=== PATIENT | female | born 1940 | race Caucasian/White ===

== ENCOUNTER 2017-02-04 14:35 | Emergency (ER) | payer MEDICARE, BC ==
[2017-02-04] MEDS ORDERED: Lidocaine 1% 30 ML SDV INJECT ONE (14:51)
[2017-02-04] MEDS ORDERED: Bacitracin Oint 1 GM U/D Packet TOP ONE (14:51)
[2017-02-04 14:56] VITALS: BP 159/81
--- NOTE | 2017-02-04 14:56 | EDM.PDOC ---
ED HPI GENERAL MEDICAL PROBLEM - General Chief Complaint: Head Injury Stated Complaint: FALL @ HOME. CHIN, LEFT HAND, JAW PAIN Time Seen by Provider: 02/04/17 14:51 Source of Information: Reports: Patient, RN, RN Notes Reviewed History Limitations: Reports: No Limitations - History of Present Illness INITIAL COMMENTS - FREE TEXT/NARRATIVE: Pt presents to ER with c/o a fall at home resulting in a laceration to the chin , pain and swelling in the right jaw, and a hematoma to the left dorsal hand. She states she did hit her head, but did not lose consciousness. She denies anticoagulant use. She states she was letting her dog out on the leash when she got her foot caught in the rope and fell off a step, onto the sidewalk. Patient c/o pain in the right jaw, states she cannot close her teeth completely on the right side. Onset: Today, Sudden Onset Date: 02/04/17 Onset Time: 14:00 Location: Reports: Head, Face Quality: Reports: Throbbing Severity: Mild Improves with: Reports: None Worsens with: Reports: None Associated Symptoms: Reports: No Other Symptoms - Related Data Allergies Allergy/AdvReac Type Severity Reaction Status Date / Time Penicillins Allergy Swelling Verified 12/18/15 13:20 Home Meds: Home Meds Acetaminophen [Tylenol Arthritis] 1,300 mg PO BID 09/02/15 [History] Enalapril [Vasotec] 2.5 mg PO DAILY 09/02/15 [History] FLUoxetine [PROzac] 20 mg PO DAILY 09/02/15 [History] Hydroxychloroquine Sulfate [Plaquenil] 200 mg PO BID 09/02/15 [History] Hydroxychloroquine [Plaquenil] 200 mg PO BID 09/02/15 [History] Omeprazole 20 mg PO DAILY 09/02/15 [History] Morphine Sulfate [Morphine Sulfate ER] 15 mg PO BID 09/30/15 [History] Past Medical History Cardiovascular History: Reports: Hypertension Gastrointestinal History: Reports: GERD, Other (See Below) Other Gastrointestinal History: Increased Transaminase Genitourinary History: Reports: Other (See Below) Other Genitourinary History: Chronic kidney disease Musculoskeletal History: Reports: Osteoarthritis, RA, Other (See Below) Other Musculoskeletal History: Pseudogout involving multiple joints Psychiatric History: Reports: Depression Immunologic History: Reports: Other (See Below) - Past Surgical History Neurological Surgical History: Reports: Spinal Fusion, Other (See Below) Social & Family History - Family History Family Medical History: Noncontributory - Tobacco Use Smoking Status *Q: Never Smoker Second Hand Smoke Exposure: No - Caffeine Use Caffeine Use: Reports: Coffee - Recreational Drug Use Recreational Drug Use: No - Living Situation & Occupation Living situation: Reports: , Alone Occupation: Retired ED ROS GENERAL - Review of Systems Review Of Systems: ROS reveals no pertinent complaints other than HPI. ED EXAM, HEAD INJURY - Physical Exam Exam: See Below Exam Limited By: No Limitations General Appearance: Alert, WD/WN, No Apparent Distress Head: Normocephalic, Facial Lacerations, Other (right jaw pain) Nexus Criteria: Painful Distraction Injuries. No: Posterior, Midline Cervical Tenderness, Evidence of Intoxication, Altered Level of Consciousness, Focal Neurological Deficit Eyes: Bilateral Eye: EOMI, Normal Inspection, PERRL (5) Ears: Normal External Exam, Normal Canal, Hearing Grossly Normal, Normal TMs Nose: Normal Inspection, Normal Mucousa, No Blood Throat/Mouth: Normal Inspection, Normal Lips, Normal Teeth, Normal Gums, Normal Oropharynx, Normal Voice, No Airway Compromise Neck: Non-Tender, Full Range of Motion, Normal Alignment, Normal Inspection Respiratory: No Respiratory Distress, Lungs Clear, Normal Breath Sounds, No Accessory Muscle Use, Chest Non-Tender Cardiovascular: Normal Peripheral Pulses, Regular Rate, Rhythm, No Edema, No Gallop, No JVD, No Murmur, No Rub GI/Abdominal Exam: Normal Bowel Sounds, Soft, Non-Tender, No Organomegaly, No Distention, No Abnormal Bruit, No Mass (Female) Exam: Deferred Rectal (Female) Exam: Deferred Back Exam: Normal Inspection, Full Range of Motion Extremities: Normal Inspection, Normal Range of Motion, Non-Tender, No Pedal Edema, Normal Capillary Refill, Other (large hematoma to the left dorsal hand, pain to left elbow, humerus) Neurologic: No Motor/Sensory Deficits, Alert, Normal Mood/Affect, Oriented x 3 Skin: Normal Color, Warm/Dry - [place] Coma Score Best Eye Response (James): (4) Open Spontaneously Best Verbal Response ([place]): (5) Oriented Best Motor Response (James): (6) Obeys Commands James Total: 15 ED LACERATION/WOUND & BIJAL PROC - Laceration/Wound Repair Middle Mid-Anterior Medial Distal Ventral Face Lac/wound length in cm: 2.8 (under chin) Appearance: Subcutaneous Distal NVT: Neuro & Vascular Intact Anesthetic Type: Local Local Anesthesia - Lidocaine (Xylocaine): 1% Plain Local Anesthetic Volume: 5cc Skin Prep: Chlorhexidine (Hibiciens) Exploration/Debridement/Repair: Wound Explored, In a Bloodless Field, Explored to Base, No Foreign Material Found Closed with: Sutures Suture Size: other (5.0) # of Sutures: 3 Suture Type: Nylon Course - Vital Signs Last Recorded V/S: Last Vital Signs Temp 97.2 F 02/04/17 14:46 Pulse 101 H 02/04/17 14:46 Resp 16 02/04/17 14:46 BP 159/81 H 02/04/17 14:46 Pulse Ox 97 02/04/17 14:46 - Orders/Labs/Meds Meds: Medications Discontinued Medications Generic Name Dose Route Start Last Admin Trade Name Freq PRN Reason Stop Dose Admin Bacitracin 1 dose 02/04/17 14:51 02/04/17 15:51 Bacitracin Oint 1 Gm TOP 02/04/17 14:52 1 dose ONETIME ONE Administration Lidocaine HCl 30 ml 02/04/17 14:51 02/04/17 15:51 Xylocaine-Mpf 1% INJECT 02/04/17 14:52 30 ml ONETIME ONE Administration - Radiology Interpretation Free Text/Narrative:: head CT w/o contrast: maxillofacial CT w/o contrast: See rad report CT Results Date: 02/04/17 - Re-Assessments/Exams Free Text/Narrative Re-Assessment/Exam: 02/04/17 16:45 Discussed patient case with Dr. Lea at . He states he would like the patient to have a full liquid diet until seen by him. He would like to see her Friday morning in the clinic. Departure - Departure Time of Disposition: 16:46 Disposition: Home, Self-Care 01 Condition: Fair Clinical Impression: Laceration, Hematoma Mandible fracture Qualifiers: Encounter type: initial encounter Fracture type: closed Mandible location: condylar process Laterality: right Qualified Code(s): S02.611A - Fracture of condylar process of right mandible, initial encounter for closed fracture Contusion of left elbow and forearm Qualifiers: Encounter type: initial encounter Qualified Code(s): S50.12XA - Contusion of left forearm, initial encounter - Discharge Information Instructions: Hematoma, [id number], Full Liquid Diet, Fractured-Jaw Meal Plan , Elbow Contusion, [id number], Laceration Care, Adult, [id number] Referrals: Opal Han [Primary Care Provider] - Forms: ED Department Discharge Additional Instructions: Tylenol or Motrin for pain as directed Full liquid diet until seen by Dr. Lea in [place] Call tomorrow morning to make an appointment with Dr. Lea at [facility] in [place]. He would like to see you Friday morning in [place] in the clinic. Follow up with your primary care provider to have sutures removed in 7 days
--- NOTE | 2017-02-04 15:59 | CR ---
Clinical history: 76-year-old female injured in fall. Interpretation: 3 views left humerus confirm apparent chronic rotator cuff damage with reactive arthritic changes of the left shoulder joint. No sign of long bone humeral fracture, acute glenohumeral or left elbow joint dislocation. No fractures of the left clavicle or ipsilateral bony thorax.
--- NOTE | 2017-02-04 16:02 | CT ---
Clinical history: 76-year-old 143 pound female pain after injury to right side of the head and jaw (f all). Scan technique: Volume acquisition of data emergency unenhanced CT scan of the head and brain obtaine d with patient lying supine on the Siemens multi slice CT scanner [place], [place]. All data archived in the PAC system for storage and study (bone/brain windows). Interpretation: Uniformly thick bony calvarium without sign of skull fracture, underlying brain contu umu, contrecoup brain injury, or extracerebral/intracranial epidural or subdural hematoma. Normal or bits. Symmetric clear pneumatization of the paranasal and mastoid sinuses (nasal septum is straight in the midline). Age-appropriate atrophy with underlying mirror-image normal ventricular system. Physiologic midline p ineal and scattered but symmetric callus cases of choroid plexus. No supratentorial or posterior fossa mass lesion, focal areas of ischemic infarct/cerebral edema, or signs of acute intracerebral/intraventricular/subarachnoid bleed. CONCLUSION: No sign of skull fracture or closed head trauma. Atrophy.
--- NOTE | 2017-02-04 16:07 | CT ---
Clinical history: 76-year-old female right face and jaw trauma (ground-level fall) who had a "negativ e" emergency unenhanced CT scan of the head and brain. Scan technique: Volume acquisition of data unenhanced CT scan of the face obtained with patient lying supine on the Siemens multi slice CT scanner [place], [place]. All da ta archived in the PACS system for storage, reformatting and study. Interpretation: Abnormal. Acute nondisplaced fracture neck of right mandible just beneath the ipsilateral TMJ. No sign of other mandibular fracture or temporomandibular joint dislocation (symmetric dental occlusi on). Symmetric normal appearing orbits and zygomatic arches. Nasal septum is straight in the midline. Paranasal sinuses symmetrically pneumatized and clear. No foreign bodies. CONCLUSION: Infracondylar fracture right mandible, near the TMJ. No sign of other facial bone fractur e or TMJ dislocation.
== END 2017-02-04 17:11 | disposition home or self-care (01) ==
LOC: DL.ED 14:35
DX: S02.611A Fracture of condylar process of right mandible, initial encounter for closed fracture (principal); S01.81XA Laceration without foreign body of other part of head, initial encounter; S50.12XA Contusion of left forearm, initial encounter; I10 Essential (primary) hypertension; Z79.899 Other long term (current) drug therapy; Z88.0 Allergy status to penicillin; W19.XXXA Unspecified fall, initial encounter; Y92.009 Unspecified place in unspecified non-institutional (private) residence as the place of occurrence of the external cause
CPT/HCPCS: 12013; 70450; 70486; 73060-LT; 99283; 99284

== ENCOUNTER 2021-04-05 11:37 | Inpatient (IN) | payer MEDICARE, BC ==
--- NOTE | 2021-04-05 12:25 | EDM.PDOC ---
ED HPI GENERAL MEDICAL PROBLEM - General Chief Complaint: Gastrointestinal Problem Stated Complaint: JUVENCIO REFERRED / INFEC & BLACK STOOL Time Seen by Provider: 04/05/21 12:25 Source of Information: Reports: Patient, Old Records, RN, RN Notes Reviewed History Limitations: Reports: No Limitations - History of Present Illness INITIAL COMMENTS - FREE TEXT/NARRATIVE: Pt presents to clinic sent by Dr. Guthrie due to pt reporting onset of black stools. Pt c/o unexplained weight loss of approx. 30lbs in the last 6 months or so. Pt developed diarrhea 2 months ago and it has been constant with several, often uncontrollable liquid BMs everyday. Pt states her appetite has been poor. Admits to nausea, worsening generalized weakness, and to several falls. Denies fever, chest pain, cough, chills, bloody stool, or dysuria. Dr. Gibson has access to [facility] with [facility] and was able to confirm the pt was treated for Campylobacter with zithromax, and is being treated for cryptosporidium with Nitazoxanide. - Related Data Allergies Allergy/AdvReac Type Severity Reaction Status Date / Time Penicillins Allergy Swelling Verified 12/18/15 13:20 Home Meds: Home Meds Acetaminophen [Tylenol Arthritis] 1,300 mg PO BID 09/02/15 [History] Enalapril [Vasotec] 2.5 mg PO DAILY 09/02/15 [History] FLUoxetine [PROzac] 20 mg PO DAILY 09/02/15 [History] Hydroxychloroquine Sulfate [Plaquenil] 200 mg PO BID 09/02/15 [History] Hydroxychloroquine [Plaquenil] 200 mg PO BID 09/02/15 [History] Omeprazole 20 mg PO DAILY 09/02/15 [History] Morphine Sulfate [Morphine Sulfate ER] 15 mg PO BID 09/30/15 [History] Leflunomide [Arava] 20 mg PO DAILY 04/05/21 [History] Nitazoxanide 500 mg PO BID 04/05/21 [History] Past Medical History HEENT History: Reports: Impaired Vision Cardiovascular History: Reports: Hypertension Gastrointestinal History: Reports: GERD, Other (See Below) Other Gastrointestinal History: Increased Transaminase Genitourinary History: Reports: Other (See Below) Other Genitourinary History: Chronic kidney disease Musculoskeletal History: Reports: Osteoarthritis, RA, Other (See Below) Other Musculoskeletal History: Pseudogout involving multiple joints Psychiatric History: Reports: Depression Immunologic History: Reports: Other (See Below) Other Immunologic History: RA Oncologic (Cancer) History: Reports: Basal Cell Carcinoma - Past Surgical History Neurological Surgical History: Reports: Spinal Fusion, Other (See Below) Social & Family History - Family History Family Medical History: No Pertinent Family History - Caffeine Use Caffeine Use: Reports: Coffee - Living Situation & Occupation Living situation: Reports: , Alone Occupation: Retired ED ROS GENERAL - Review of Systems Review Of Systems: Comprehensive ROS is negative, except as noted in HPI. ED EXAM, GI/ABD - Physical Exam Exam: See Below Exam Limited By: No Limitations General Appearance: Alert, No Apparent Distress, Thin, Other (Frail elderly appearing female) Eyes: Bilateral: Normal Appearance (No scleral icterus) Nose: Normal Inspection, No Blood Throat/Mouth: Normal Lips, Normal Voice, No Airway Compromise, Other (Very dry oral mucosa) Head: Atraumatic, Normocephalic Neck: Normal Inspection, Non-Tender, Full Range of Motion Respiratory/Chest: No Respiratory Distress, Lungs Clear, Normal Breath Sounds, No Accessory Muscle Use, Chest Non-Tender Cardiovascular: Normal Peripheral Pulses, Regular Rate, Rhythm, No Edema GI/Abdominal Exam: Normal Bowel Sounds, Soft, Tender (Mild generalzied tenderness). No: Guarding, Rigid, Rebound Rectal (Female) Exam: Normal Rectal Tone, Heme - Stool. No: Bloody Stool Back Exam: Normal Inspection Extremities: Normal Inspection, No Pedal Edema Neurological: Alert, Oriented, No Motor/Sensory Deficits, Other (Generalized weakness) Psychiatric: Normal Affect, Normal Mood Skin Exam: Warm, Dry, Other (Resolving large bruises to back and flank from recent fall(s)) Course - Vital Signs Last Recorded V/S: Last Vital Signs Temp 98.9 F 04/05/21 12:31 Pulse 68 04/05/21 12:31 Resp 16 04/05/21 12:31 BP 116/71 04/05/21 12:31 Pulse Ox 99 04/05/21 12:31 - Orders/Labs/Meds Orders: Active Orders 24 hr Category Date Time Status Peripheral IV Care [RC] . DIRECTED Care 04/05/21 12:41 Active CORONAVIRUS COVID-19 NICK [MOLEC] Stat Lab 04/05/21 14:51 Ordered CULTURE URINE [RM] Stat Lab 04/05/21 14:05 Received Sodium Chloride 0.9% [Saline Flush] Med 04/05/21 12:41 Active 10 ml FLUSH ASDIRECTED PRN Peripheral IV Insertion Adult [OM.PC] Stat Oth 04/05/21 12:41 Ordered Medication Orders Sodium Chloride (Sodium Chloride 0.9% 10 Ml Syringe) 10 ml FLUSH ASDIRECTED PRN PRN Reason: Keep Vein Open Last Admin: 04/05/21 12:53 Dose: 10 ml Documented by: IGNACIA Labs: Laboratory Tests 04/05/21 04/05/21 04/05/21 Range/Units 12:54 12:54 12:54 WBC 5.8 (5.0-10.0) 10^3/uL RBC 3.28 L (4.2-5.4) 10^6/uL Hgb 10.5 L (12.0-16.0) g/dL Hct 30.7 L (37.0-47.0) % MCV 93.6 D (80-100) fL MCH 32.0 (27.0-34.0) pg MCHC 34.2 (33.0-35.0) g/dL Plt Count 258 D (150-450) 10^3/uL Neut % (Auto) 72.9 (42.2-75.2) % Lymph % (Auto) 9.0 L (20.5-50.1) % [place] % (Auto) 15.9 H (2-8) % Eos % (Auto) 1.9 (1.0-3.0) % Baso % (Auto) 0.3 (0.0-1.0) % Sodium 137 (136-145) mmol/L Potassium 2.4 L* (3.5-5.1) mmol/L Chloride 100 (98-107) mmol/L Carbon Dioxide 22 (21-32) mmol/L Anion Gap 17.4 H (7-13) mEq/L BUN 22 H (7-18) mg/dL Creatinine 1.60 H (0.55-1.02) mg/dL Est Cr Clr Drug Dosing 21.78 mL/min Estimated GFR (MDRD) 31 BUN/Creatinine Ratio 13.8 (No establ ref range) Glucose 109 H (70-99) mg/dL Lactic Acid 1.0 (0.4-2.0) mmol/L Calcium 8.3 L (8.5-10.1) mg/dL Phosphorus 2.5 L (2.6-4.7) mg/dL Magnesium 1.6 L (1.8-2.4) mg/dL Total Bilirubin 0.4 (0.2-1.0) mg/dL AST 34 (15-37) U/L ALT 26 (14-59) U/L Alkaline Phosphatase 51 (46-116) U/L Lactate Dehydrogenase 223 (81-234) U/L Creatine Kinase 221 H (16-191) U/L C-Reactive Protein 0.4 (0.0-0.9) mg/dL Total Protein 6.1 L (6.4-8.2) g/dL Albumin 2.9 L (3.4-5.0) g/dL Globulin 3.2 Albumin/Globulin Ratio 0.91 Amylase 29 (25-115) U/L Lipase 108 (73-393) U/L TSH, Ultra Sensitive 0.88 (0.36-3.74) uIU/mL Urine Color (YELLOW) Urine Appearance (CLEAR) Urine pH (5.0-9.0) Ur Specific [place] (1.005-1.030) Urine Protein (NEGATIVE) Urine Glucose (UA) (NEGATIVE) Urine Ketones (NEGATIVE) Urine Occult Blood (NEGATIVE) Urine Nitrite (NEGATIVE) Urine Bilirubin (NEGATIVE) Urine Urobilinogen (0.2-1.0) mg/dL Ur Leukocyte Esterase (NEGATIVE) Urine RBC (0-5) /HPF Urine WBC (0-5/HPF) /HPF Ur Epithelial Cells (NOT SEEN) /HPF Amorphous Sediment (NOT SEEN) /HPF Urine Bacteria (0-FEW/HPF) /HPF Urine Mucus (NOT SEEN) /LPF 04/05/21 Range/Units 14:05 WBC (5.0-10.0) 10^3/uL RBC (4.2-5.4) 10^6/uL Hgb (12.0-16.0) g/dL Hct (37.0-47.0) % MCV (80-100) fL MCH (27.0-34.0) pg MCHC (33.0-35.0) g/dL Plt Count (150-450) 10^3/uL Neut % (Auto) (42.2-75.2) % Lymph % (Auto) (20.5-50.1) % [place] % (Auto) (2-8) % Eos % (Auto) (1.0-3.0) % Baso % (Auto) (0.0-1.0) % Sodium (136-145) mmol/L Potassium (3.5-5.1) mmol/L Chloride (98-107) mmol/L Carbon Dioxide (21-32) mmol/L Anion Gap (7-13) mEq/L BUN (7-18) mg/dL Creatinine (0.55-1.02) mg/dL Est Cr Clr Drug Dosing mL/min Estimated GFR (MDRD) BUN/Creatinine Ratio (No establ ref range) Glucose (70-99) mg/dL Lactic Acid (0.4-2.0) mmol/L Calcium (8.5-10.1) mg/dL Phosphorus (2.6-4.7) mg/dL Magnesium (1.8-2.4) mg/dL Total Bilirubin (0.2-1.0) mg/dL AST (15-37) U/L ALT (14-59) U/L Alkaline Phosphatase (46-116) U/L Lactate Dehydrogenase (81-234) U/L Creatine Kinase (16-191) U/L C-Reactive Protein (0.0-0.9) mg/dL Total Protein (6.4-8.2) g/dL Albumin (3.4-5.0) g/dL Globulin Albumin/Globulin Ratio Amylase (25-115) U/L Lipase (73-393) U/L TSH, Ultra Sensitive (0.36-3.74) uIU/mL Urine Color Yellow (YELLOW) Urine Appearance Slightly cloudy (CLEAR) Urine pH 6.0 (5.0-9.0) Ur Specific [place] 1.015 (1.005-1.030) Urine Protein Trace H (NEGATIVE) Urine Glucose (UA) Negative (NEGATIVE) Urine Ketones Negative (NEGATIVE) Urine Occult Blood Trace-intact H (NEGATIVE) Urine Nitrite Negative (NEGATIVE) Urine Bilirubin Negative (NEGATIVE) Urine Urobilinogen 0.2 (0.2-1.0) mg/dL Ur Leukocyte Esterase Large H (NEGATIVE) Urine RBC 0-5 (0-5) /HPF Urine WBC Packed H (0-5/HPF) /HPF Ur Epithelial Cells Rare (NOT SEEN) /HPF Amorphous Sediment Few (NOT SEEN) /HPF Urine Bacteria Moderate H (0-FEW/HPF) /HPF Urine Mucus Few H (NOT SEEN) /LPF Meds: Medications Generic Name Dose Route Start Last Admin Trade Name Freq PRN Reason Stop Dose Admin Sodium Chloride 10 ml 04/05/21 12:41 04/05/21 12:53 Sodium Chloride 0.9% 10 Ml Syringe FLUSH 10 ml ASDIRECTED PRN Administration Keep Vein Open Discontinued Medications Generic Name Dose Route Start Last Admin Trade Name Freq PRN Reason Stop Dose Admin Sodium Chloride 1,000 mls @ 999 mls/hr 04/05/21 12:43 04/05/21 12:53 Normal Saline IV 04/05/21 13:43 999 mls/hr .BOLUS ONE Administration Ondansetron HCl 4 mg 04/05/21 12:43 04/05/21 12:53 Ondansetron 4 Mg/2 Ml Sdv IV 04/05/21 12:44 4 mg ONETIME ONE Administration Departure - Departure Time of Disposition: 14:22 (admitted to Dr. Gibson) Disposition: Admitted As Inpatient 66 Condition: Fair Clinical Impression: Diarrhea due to cryptosporidium, Campylobacter enteritis, Dehydration, Hypokalemia, Hypomagnesemia, Generalized weakness, Unexplained weight loss, Recurrent falls - Discharge Information *PRESCRIPTION DRUG MONITORING PROGRAM REVIEWED*: Not Applicable *COPY OF PRESCRIPTION DRUG MONITORING REPORT IN PATIENT [place]: Not Applicable Forms: ED Department Discharge Sepsis Event Note (ED) - Focused Exam Vital Signs: Vital Signs Temp Pulse Resp BP Pulse Ox 04/05/21 12:31 98.9 F 68 16 116/71 99 - My Orders Last 24 Hours: My Active Orders 04/05/21 12:41 Peripheral IV Care [RC] . DIRECTED Sodium Chloride 0.9% [Saline Flush] 10 ml FLUSH ASDIRECTED PRN Peripheral IV Insertion Adult [OM.PC] Stat 04/05/21 14:05 CULTURE URINE [RM] Stat 04/05/21 14:51 CORONAVIRUS COVID-19 NICK [MOLEC] Stat - Assessment/Plan Last 24 Hours: My Active Orders 04/05/21 12:41 Peripheral IV Care [RC] . DIRECTED Sodium Chloride 0.9% [Saline Flush] 10 ml FLUSH ASDIRECTED PRN Peripheral IV Insertion Adult [OM.PC] Stat 04/05/21 14:05 CULTURE URINE [RM] Stat 04/05/21 14:51 CORONAVIRUS COVID-19 NICK [MOLEC] Stat
[2021-04-05] MEDS ORDERED: Sodium Chloride 0.9% 10 ML Syringe FLUSH PRN (12:41)
[2021-04-05] MEDS ORDERED: Ondansetron 4 MG/2 ML SDV IV ONE (12:43)
[2021-04-05] MEDS ORDERED: Sodium Chloride 0.9% 1,000 ML IV ONE (12:43)
[2021-04-05 13:30] LABS: ANION GAP 17.4 mEq/L (7-13)
[2021-04-05] MEDS ORDERED: NS + KCl 20mEq/L 1,000 ML IV SCH (16:30)
[2021-04-05] MEDS ORDERED: Temazepam 15 MG Cap PO PRN (16:52)
[2021-04-05] MEDS ORDERED: Acetaminophen/HYDROcodone 325-10 MG Tab PO PRN (16:52)
[2021-04-05] MEDS ORDERED: Ondansetron 4 MG Tab.DIS PO PRN (16:52)
[2021-04-05] MEDS ORDERED: Ondansetron 4 MG/2 ML SDV IVPUSH PRN (16:52)
[2021-04-05] MEDS ORDERED: Acetaminophen 325 MG Tab PO PRN ×2 (16:52→19:51)
--- NOTE | 2021-04-05 17:29 | PCM.HP ---
H&P History of Present Illness - General Date of Service: 04/05/21 Admit Problem/Dx: Admission Diagnosis/Problem Admission Diagnosis/Problem Hypokalemia Source of Information: Patient - History of Present Illness Initial Comments - Free Text/Narative: Information is from ER provider, patient I have also reviewed outside medical records from [facility] clinic notes In summary Mrs Hair is an 81 yo F with h/o anxiety, RA, ged, dyslipidemia, She has developed a diarrhea that has been on/off present since 12/2020. She had no ABx exposure prior to development of the diarrhea. She was seen by her PMD and referred to GI program consultant dr. Soriano Prior stool studies noted cryptosporidium Ag and campylobacter from stool. C diff was negative, She was treated with 3 days of Azithromycin and nitazoxanide The diarrhea is watery, no blood in stool no associated cramps, no fever she does report black stool color, diarrhea present during the day as well as during the night in the past days she has been getting progressively weaker, has 20-30 pounds wght loss fell 2 days ago - she thinks it was due to a rug on the floor, hit her back , hematoma developed, no loc yesterday had 1 loose BM, \last night had 3 watery black BM per chart review: from [facility] SOCIAL HISTORY: Does not smoke cigarettes, does not drink alcohol, does not take large amounts of aspirin-related medications regularly. Does not take pop, has some milk intolerance. FAMILY HISTORY: Negative for IBD, colon polyp, or colon cancer. No peptic ulcer disease or liver disease. PAST ILLNESS: 1. Generalized anxiety disorder. 2. Depressive illness. 3. Hyperlipidemia. 4. Status post skin basal cell cancer. 5. Hyperglycemia. 6. GERD. 7. Status post gram-negative sepsis. 8. Status post UTI. 9. Hypertension. 10. Status post jaw fracture. 11. Status post spine fracture requiring surgery. 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 13. Status post lymph node biopsy, benign. 14. Status post hip arthroplasty. 15. ALLERGY AND/OR INTOLERANCE TO PENICILLIN, LISINOPRIL. 16. RA Medications Marked As Taking Medication Sig FLUoxetine (PROZAC) 20 MG capsule TAKE 1 CAPSULE BY MOUTH DAILY losartan (COZAAR) 50 MG tablet TAKE 1/2 TABLET BY MOUTH DAILY omeprazole (PRILOSEC) 20 MG capsule TAKE 1 CAPSULE BY MOUTH DAILY leflunomide (ARAVA) 20 MG tablet TAKE 1 TABLET BY MOUTH EVERY MORNING Calcium Carb-Cholecalciferol (CALCIUM-VITAMIN D) 500-200 MG-UNIT per tablet Take 1 Tab by mouth daily. w Acetaminophen 650 MG TABS Take 1,300 mg by mouth 2 times daily. Indications: CPPD pain Multiple Vitamins-Minerals (MULTIVITAMIN & MINERAL PO) Take 1 Tab by mouth daily. Indications: supplementation - Related Data Allergies/Adverse Reactions: Allergies Allergy/AdvReac Type Severity Reaction Status Date / Time Penicillins Allergy Swelling Verified 12/18/15 13:20 Home Medications: Home Meds Acetaminophen [Tylenol Arthritis] 1,300 mg PO BID 09/02/15 [History] Enalapril [Vasotec] 2.5 mg PO DAILY 09/02/15 [History] FLUoxetine [PROzac] 20 mg PO DAILY 09/02/15 [History] Omeprazole 20 mg PO DAILY 09/02/15 [History] Leflunomide [Arava] 20 mg PO DAILY 04/05/21 [History] Losartan [Cozaar] 50 mg PO DAILY 04/05/21 [History] Multivit,Calc,Mins/Iron/Folic [Women's Daily Formula Caplet] 1 each PO DAILY 04/05/21 [History] Nitazoxanide 500 mg PO BID 04/05/21 [History] Past Medical History HEENT History: Reports: Hard of Hearing, Impaired Vision Other HEENT History: wears glasses. Bilateral KMI Cardiovascular History: Reports: Hypertension Respiratory History: Reports: None Gastrointestinal History: Reports: GERD, Other (See Below) Other Gastrointestinal History: Increased Transaminase Genitourinary History: Reports: Other (See Below) Other Genitourinary History: Chronic kidney disease Musculoskeletal History: Reports: Osteoarthritis, RA, Other (See Below) Other Musculoskeletal History: Pseudogout involving multiple joints. Total hip replacement of right leg Neurological History: Reports: None Psychiatric History: Reports: Depression, Other (See Below) Other Psychiatric History: Depression in past following her daughter and husbands within less than a year. States no depression now Endocrine/Metabolic History: Reports: Hypokalemia Hematologic History: Reports: None Immunologic History: Reports: Other (See Below) Other Immunologic History: RA Oncologic (Cancer) History: Reports: Basal Cell Carcinoma Dermatologic History: Reports: Other (See Below) Other Dermatologic History: basal cell carcinoma - Infectious Disease History Infectious Disease History: Reports: C-Difficile, Chicken Pox, Measles, Mumps, Shingles - Past Surgical History Head Surgeries/Procedures: Reports: None GI Surgical History: Reports: Colonoscopy Neurological Surgical History: Reports: Spinal Fusion, Other (See Below) Other Neurological Surgeries/Procedures: T10-L2 fusion (09/03/15) following T12 burst fracture and L1 & L3 transverse process fxs on 09/02/15 Social & Family History - Family History Family Medical History: No Pertinent Family History - Tobacco Use Tobacco Use Status *Q: Never Tobacco User - Caffeine Use Caffeine Use: Reports: Coffee - Recreational Drug Use Recreational Drug Use: No - Living Situation & Occupation Living situation: Reports: , Alone Occupation: Retired H&P Review of Systems - Review of Systems: Review Of Systems: See Below General: Reports: Malaise. Denies: Fever, Chills Pulmonary: Denies: Shortness of Breath Cardiovascular: Denies: Chest Pain, Edema Gastrointestinal: Reports: Anorexia, Black Stool, Nausea (yesterday). Denies: Abdominal Pain, Bloody Stool Musculoskeletal: Reports: Other (back pain - since fall, joint pain - chronic) Psychiatric: Denies: Confusion Exam - Exam Exam: See Below - Vital Signs Vital Signs: Last Vital Signs Temp 98.9 F 04/05/21 12:31 Pulse 68 04/05/21 12:31 Resp 16 04/05/21 12:31 BP 116/71 04/05/21 12:31 Pulse Ox 99 04/05/21 12:31 Weight: 112 lb - Exam Quality Assessment: No: Supplemental Oxygen General: Alert, Oriented Neck: Supple Lungs: Clear to Auscultation, Normal Respiratory Effort Cardiovascular: Regular Rate, Regular Rhythm GI/Abdominal Exam: Normal Bowel Sounds, Soft, Non-Tender Back Exam: Other (bruise) Extremities: No Pedal Edema Skin: Warm, Dry Neuro Extensive - Mental Status: Alert, Oriented x3, Normal Mood/Affect Psychiatric: Alert, Normal Affect, Normal Mood - Patient Data Lab Results Last 24 hrs: Laboratory Results - last 24 hr 04/05/21 04/05/21 04/05/21 Range/Units 12:54 12:54 12:54 WBC 5.8 (5.0-10.0) 10^3/uL RBC 3.28 L (4.2-5.4) 10^6/uL Hgb 10.5 L (12.0-16.0) g/dL Hct 30.7 L (37.0-47.0) % MCV 93.6 D (80-100) fL MCH 32.0 (27.0-34.0) pg MCHC 34.2 (33.0-35.0) g/dL Plt Count 258 D (150-450) 10^3/uL Neut % (Auto) 72.9 (42.2-75.2) % Lymph % (Auto) 9.0 L (20.5-50.1) % [place] % (Auto) 15.9 H (2-8) % Eos % (Auto) 1.9 (1.0-3.0) % Baso % (Auto) 0.3 (0.0-1.0) % Sodium 137 (136-145) mmol/L Potassium 2.4 L* (3.5-5.1) mmol/L Chloride 100 (98-107) mmol/L Carbon Dioxide 22 (21-32) mmol/L Anion Gap 17.4 H (7-13) mEq/L BUN 22 H (7-18) mg/dL Creatinine 1.60 H (0.55-1.02) mg/dL Est Cr Clr Drug Dosing 21.78 mL/min Estimated GFR (MDRD) 31 BUN/Creatinine Ratio 13.8 (No establ ref range) Glucose 109 H (70-99) mg/dL Lactic Acid 1.0 (0.4-2.0) mmol/L Calcium 8.3 L (8.5-10.1) mg/dL Phosphorus 2.5 L (2.6-4.7) mg/dL Magnesium 1.6 L (1.8-2.4) mg/dL Total Bilirubin 0.4 (0.2-1.0) mg/dL AST 34 (15-37) U/L ALT 26 (14-59) U/L Alkaline Phosphatase 51 (46-116) U/L Lactate Dehydrogenase 223 (81-234) U/L Creatine Kinase 221 H (16-191) U/L C-Reactive Protein 0.4 (0.0-0.9) mg/dL Total Protein 6.1 L (6.4-8.2) g/dL Albumin 2.9 L (3.4-5.0) g/dL Globulin 3.2 Albumin/Globulin Ratio 0.91 Amylase 29 (25-115) U/L Lipase 108 (73-393) U/L TSH, Ultra Sensitive 0.88 (0.36-3.74) uIU/mL Urine Color (YELLOW) Urine Appearance (CLEAR) Urine pH (5.0-9.0) Ur Specific [place] (1.005-1.030) Urine Protein (NEGATIVE) Urine Glucose (UA) (NEGATIVE) Urine Ketones (NEGATIVE) Urine Occult Blood (NEGATIVE) Urine Nitrite (NEGATIVE) Urine Bilirubin (NEGATIVE) Urine Urobilinogen (0.2-1.0) mg/dL Ur Leukocyte Esterase (NEGATIVE) Urine RBC (0-5) /HPF Urine WBC (0-5/HPF) /HPF Ur Epithelial Cells (NOT SEEN) /HPF Amorphous Sediment (NOT SEEN) /HPF Urine Bacteria (0-FEW/HPF) /HPF Urine Mucus (NOT SEEN) /LPF SARS-CoV-2 RNA (NICK) (NEGATIVE) 04/05/21 04/05/21 Range/Units 14:05 14:32 WBC (5.0-10.0) 10^3/uL RBC (4.2-5.4) 10^6/uL Hgb (12.0-16.0) g/dL Hct (37.0-47.0) % MCV (80-100) fL MCH (27.0-34.0) pg MCHC (33.0-35.0) g/dL Plt Count (150-450) 10^3/uL Neut % (Auto) (42.2-75.2) % Lymph % (Auto) (20.5-50.1) % [place] % (Auto) (2-8) % Eos % (Auto) (1.0-3.0) % Baso % (Auto) (0.0-1.0) % Sodium (136-145) mmol/L Potassium (3.5-5.1) mmol/L Chloride (98-107) mmol/L Carbon Dioxide (21-32) mmol/L Anion Gap (7-13) mEq/L BUN (7-18) mg/dL Creatinine (0.55-1.02) mg/dL Est Cr Clr Drug Dosing mL/min Estimated GFR (MDRD) BUN/Creatinine Ratio (No establ ref range) Glucose (70-99) mg/dL Lactic Acid (0.4-2.0) mmol/L Calcium (8.5-10.1) mg/dL Phosphorus (2.6-4.7) mg/dL Magnesium (1.8-2.4) mg/dL Total Bilirubin (0.2-1.0) mg/dL AST (15-37) U/L ALT (14-59) U/L Alkaline Phosphatase (46-116) U/L Lactate Dehydrogenase (81-234) U/L Creatine Kinase (16-191) U/L C-Reactive Protein (0.0-0.9) mg/dL Total Protein (6.4-8.2) g/dL Albumin (3.4-5.0) g/dL Globulin Albumin/Globulin Ratio Amylase (25-115) U/L Lipase (73-393) U/L TSH, Ultra Sensitive (0.36-3.74) uIU/mL Urine Color Yellow (YELLOW) Urine Appearance Slightly cloudy (CLEAR) Urine pH 6.0 (5.0-9.0) Ur Specific [place] 1.015 (1.005-1.030) Urine Protein Trace H (NEGATIVE) Urine Glucose (UA) Negative (NEGATIVE) Urine Ketones Negative (NEGATIVE) Urine Occult Blood Trace-intact H (NEGATIVE) Urine Nitrite Negative (NEGATIVE) Urine Bilirubin Negative (NEGATIVE) Urine Urobilinogen 0.2 (0.2-1.0) mg/dL Ur Leukocyte Esterase Large H (NEGATIVE) Urine RBC 0-5 (0-5) /HPF Urine WBC Packed H (0-5/HPF) /HPF Ur Epithelial Cells Rare (NOT SEEN) /HPF Amorphous Sediment Few (NOT SEEN) /HPF Urine Bacteria Moderate H (0-FEW/HPF) /HPF Urine Mucus Few H (NOT SEEN) /LPF SARS-CoV-2 RNA (NICK) Negative (NEGATIVE) Result Diagrams: 04/05/21 12:54 04/05/21 12:54 [place] Results Last 24 hrs: Microbiology 04/05/21 12:34 Stool Occult Blood ([place]) - Final Stool / Feces NEGATIVE OCCULT BLOOD REFERENCE RANGE: NEGATIVE - Problem List (1) Dehydration SNOMED Code(s): 97760222 ICD Code: E86.0 - DEHYDRATION Status: Acute Current Visit: No (2) Diarrhea due to cryptosporidium SNOMED Code(s): 99318858, 950101328 ICD Code: A07.2 - CRYPTOSPORIDIOSIS Status: Acute Current Visit: No (3) Generalized weakness SNOMED Code(s): 00976505 ICD Code: R53.1 - WEAKNESS Status: Acute Current Visit: No (4) Hematoma SNOMED Code(s): 556020255 ICD Code: T14.8XXA - OTHER INJURY OF UNSPECIFIED BODY REGION, INITIAL ENCOUNTER Status: Acute Current Visit: No (5) Hypokalemia SNOMED Code(s): 46920489 ICD Code: E87.6 - HYPOKALEMIA Status: Acute Current Visit: No (6) Hypomagnesemia SNOMED Code(s): 854344220 ICD Code: E83.42 - HYPOMAGNESEMIA Status: Acute Current Visit: No (7) UTI, Urinary tract infectious disease SNOMED Code(s): 93668985 ICD Code: N39.0 - URINARY TRACT INFECTION, SITE NOT SPECIFIED Status: Acute Current Visit: No (8) Unexplained weight loss SNOMED Code(s): 662150345 ICD Code: R63.4 - ABNORMAL WEIGHT LOSS Status: Acute Current Visit: No Problem List Initiated/Reviewed/Updated: Yes Orders Last 24hrs: Active Orders 24 hr Category Date Time Status Admission Diagnosis [ADT] Stat ADT 04/05/21 15:27 Ordered Admission Status [Patient Status] [ADT] Routine ADT 04/05/21 15:27 Active Oxygen Therapy [RC] PRN Care 04/05/21 16:52 Active Peripheral IV Care [RC] Q4HR Care 04/05/21 12:41 Active Up With Assistance [RC] ASDIRECTED Care 04/05/21 16:52 Active VTE/DVT Education [RC] PER UNIT ROUTINE Care 04/05/21 16:52 Active Vital Signs [RC] Q4H Care 04/05/21 16:52 Active OT Evaluation and Treatment [CONS] Routine Cons 04/05/21 16:30 Active PT Evaluation and Treatment [CONS] Routine Cons 04/05/21 16:30 Active [place] Diet [DIET] Diet 04/05/21 Dinner Active BASIC METABOLIC PANEL,BMP [CHEM] AM Lab 04/06/21 05:15 Ordered CBC WITH AUTO DIFF [HEME] AM Lab 04/06/21 05:15 Ordered CLOSTRIDIUM DIFFICILE TOX RFLX [MREF] Routine Lab 04/05/21 16:26 Ordered CULTURE URINE [RM] Stat Lab 04/05/21 14:05 Received MAGNESIUM [CHEM] AM Lab 04/06/21 05:11 Ordered PHOSPHORUS [CHEM] AM Lab 04/06/21 05:11 Ordered Acetaminophen [TylenoL] Med 04/05/21 16:52 Active 650 mg PO Q4H PRN Acetaminophen/HYDROcodone [[place] 325-10 MG] Med 04/05/21 16:52 Active 0.5 tab PO Q4H PRN Ciprofloxacin [Ciprofloxacin HCl] Med 04/05/21 21:00 Active 250 mg PO BID FLUoxetine [PROzac] Med 04/06/21 09:00 Active 20 mg PO DAILY Famotidine [Pepcid] Med 04/05/21 21:00 Active 20 mg PO BID Heparin Sodium Med 04/05/21 22:00 Active 5,000 units SUBCUT Q8HR Magnesium Oxide Med 04/05/21 21:00 Active 500 mg PO BID Multivitamins w-Iron/Ca/FA/Min [Thera M Plus] Med 04/06/21 09:00 Active 1 tab PO DAILY NS + KCl 20mEq/L [Normal Saline with 20 mEq KCl] 1,000 Med 04/05/21 16:30 Active ml IV ASDIRECTED Omeprazole Med 04/06/21 06:00 Active 20 mg PO ACBREAKFAST Ondansetron [Zofran ODT] Med 04/05/21 16:52 Active 4 mg PO Q4H PRN Ondansetron [Zofran] Med 04/05/21 16:52 Active 4 mg IVPUSH Q4H PRN Phosphorus #1 [Neutra-Phos] Med 04/05/21 17:00 Active 250 mg PO QID Potassium Chloride [KCl in Water 10 MEQ/100 ML] 10 meq Med 04/05/21 16:30 Active Premix Bag 1 bag IV Q2H Sodium Chloride 0.9% [Saline Flush] Med 04/05/21 12:41 Active 10 ml FLUSH ASDIRECTED PRN Temazepam [Restoril] Med 04/05/21 16:52 Active 15 mg PO BEDTIME PRN Isolation [COMM] Stat Oth 04/05/21 16:27 Active Peripheral IV Insertion Adult [OM.PC] Stat Oth 04/05/21 12:41 Ordered Resuscitation Status Routine Resus Stat 04/05/21 16:52 Ordered Medication Orders Acetaminophen (Acetaminophen 325 Mg Tab) 650 mg PO Q4H PRN PRN Reason: Pain (Mild 1-3)/fever Hydrocodone Bitart/Acetaminophen (Acetaminophen/Hydrocodone 325-10 Mg Tab) 0.5 tab PO Q4H PRN PRN Reason: Pain (moderate 4-6) Ciprofloxacin (Ciprofloxacin 500 Mg Tab) 250 mg PO BID [facility] Famotidine (Famotidine 20 Mg Tab) 20 mg PO BID [facility] Fluoxetine HCl (Fluoxetine 10 Mg Cap) 20 mg PO DAILY [facility] Heparin Sodium (Porcine) (Heparin Sodium 5,000 Units/Ml Vial) 5,000 units SUBCUT Q8HR [facility] Potassium Chloride 10 meq/ (Premix) 100 mls @ 50 mls/hr IV Q2H [facility] Stop: 04/06/21 04:29 Potassium Chloride/Sodium Chloride (Normal Saline With 20 Meq Kcl) 1,000 mls @ 50 mls/hr IV ASDIRECTED [facility] Magnesium Oxide (Magnesium Oxide 250 Mg Tab) 500 mg PO BID [facility] Stop: 04/06/21 09:01 Multivitamins/Minerals (Multivitamins With Iron/Calcium/Folic Acid/Minerals Tab) 1 tab PO DAILY [facility] Omeprazole (Omeprazole 20 Mg Cap.Cr) 20 mg PO ACBREAKFAST [facility] Ondansetron HCl (Ondansetron 4 Mg Tab.Dis) 4 mg PO Q4H PRN PRN Reason: nausea, able to take PO Ondansetron HCl (Ondansetron 4 Mg/2 Ml Sdv) 4 mg IVPUSH Q4H PRN PRN Reason: Nausea/Vomiting Sodium Chloride (Sodium Chloride 0.9% 10 Ml Syringe) 10 ml FLUSH ASDIRECTED PRN PRN Reason: Keep Vein Open Last Admin: 04/05/21 12:53 Dose: 10 ml Documented by: IGNACIA Sodium Phosphate (Phosphorus #1 250 Mg Tab) 250 mg PO QID [facility] Stop: 04/06/21 13:01 Temazepam (Temazepam 15 Mg Cap) 15 mg PO BEDTIME PRN PRN Reason: Sleep Assessment/Plan Comment:: A/P: Diarrhea Previously dx as infectious with Chlamydia and cryptosporidia Previously treated with azithromycin and nitazoxanide Also has h/o milk intolerance Will start BRAT diet, lactose free diet Will repeat c diff Add Imodium as needed if cdiff is negative black stool will monitor for gi bleed, acute blood loss anemia for now increase PPI to BID omeprazole Stop omeprazole substitute with pepcid if no apparent gi bleed omeprazole can cause diarrhea as well Severe hypokalemia, hypomagnesemia, hypophosphatemia Will replace with IV KCL, PO Magnesium Recheck in 12 hours and continue supplement as needed SUKHI, dehydration Admission cr. 1.6 Will hydrate well Recheck renal fx in AM Multiple falls Likely due to dehydration Consult pt Possible UTI Check Urine cx Start Cipro HTN Hold cozaar re: sukhi Will follow vitals Mood disorder treat with Prozac h/o RA on arava concern for cryptococcus infection with immunosuppression and diarrhea side effect encouraged pt to fup with or assistant if diarrhea/crypto/chlamydia infection might be related to this medication and substitution would be needed she is reluctant to stop this medication as it has been working well for her RA dvt prophylaxis with sq heparin
[2021-04-05] MEDS: Potassium Chloride 10 MEQ in Premix Bag 1 BAG IV SCH ×2 (18:29→20:41)
[2021-04-05] MEDS: Phosphorus #1 250 MG Tab PO SCH ×2 (18:30→20:40)
[2021-04-05] MEDS: Omeprazole 20 MG Cap.CR PO SCH (20:40)
[2021-04-05] MEDS: Ciprofloxacin 500 MG Tab PO SCH (20:42)
[2021-04-05] MEDS ORDERED: Famotidine 20 MG Tab PO SCH (21:00)
[2021-04-05] MEDS ORDERED: Potassium Chloride 100 ML ONE (21:55)
[2021-04-05] MEDS: Heparin Sodium 5,000 Units/ML Vial SUBCUT SCH (22:40)
[2021-04-06] MEDS: Potassium Chloride 10 MEQ in Premix Bag 1 BAG IV SCH ×4 (00:50→07:33)
[2021-04-06] MEDS ORDERED: Omeprazole 20 MG Cap.CR PO SCH (06:00)
[2021-04-06 06:48] LABS: ANION GAP 18.2 mEq/L (7-13)
[2021-04-06] MEDS: Heparin Sodium 5,000 Units/ML Vial SUBCUT SCH ×3 (07:32→22:08)
[2021-04-06] MEDS: Acetaminophen 500 MG Tab PO PRN ×2 (08:29→20:17)
[2021-04-06] MEDS: FLUoxetine 10 MG Cap PO SCH (08:31)
[2021-04-06] MEDS: Phosphorus #1 250 MG Tab PO SCH ×2 (08:31→14:27)
[2021-04-06] MEDS: Omeprazole 20 MG Cap.CR PO SCH ×2 (08:31→20:23)
[2021-04-06] MEDS: Multivitamins with Iron/Calcium/Folic Acid/Minerals Tab PO SCH (08:32)
[2021-04-06] MEDS: Ciprofloxacin 500 MG Tab PO SCH ×2 (08:32→20:23)
[2021-04-06] MEDS ORDERED: LEFLUNOMIDE 20 MG PO SCH (09:00)
--- NOTE | 2021-04-06 12:17 | PCM.PN ---
- General Info Date of Service: 04/06/21 Admission Dx/Problem (Free Text): Admission Diagnosis/Problem Admission Diagnosis/Problem Hypokalemia Subjective Update: continued to have moderate diarrhea soft, brown x 3 since admission no associated abd pain, no fever duration is months no apparent exacerbating factors - Review of Systems General: Denies: Fever Pulmonary: Denies: Shortness of Breath Cardiovascular: Denies: Chest Pain, Edema Gastrointestinal: Reports: Diarrhea. Denies: Abdominal Pain, Nausea, Vomiting Genitourinary: Denies: Dysuria Neurological: Denies: Confusion - Patient Data Vitals - Most Recent: Last Vital Signs Temp 99.3 F 04/06/21 04:00 Pulse 82 04/06/21 04:00 Resp 18 04/06/21 04:00 BP 102/66 04/06/21 04:00 Pulse Ox 92 L 04/06/21 04:00 Weight - Most Recent: 112 lb I&O - Last 24 Hours: Intake & Output 04/05/21 04/06/21 04/06/21 22:59 06:59 14:59 Intake Total 400 120 Balance 400 120 Lab Results Last 24 Hours: Laboratory Results - last 24 hr 04/05/21 04/05/21 04/05/21 Range/Units 12:54 12:54 12:54 WBC 5.8 (5.0-10.0) 10^3/uL RBC 3.28 L (4.2-5.4) 10^6/uL Hgb 10.5 L (12.0-16.0) g/dL Hct 30.7 L (37.0-47.0) % MCV 93.6 D (80-100) fL MCH 32.0 (27.0-34.0) pg MCHC 34.2 (33.0-35.0) g/dL Plt Count 258 D (150-450) 10^3/uL Neut % (Auto) 72.9 (42.2-75.2) % Lymph % (Auto) 9.0 L (20.5-50.1) % [place] % (Auto) 15.9 H (2-8) % Eos % (Auto) 1.9 (1.0-3.0) % Baso % (Auto) 0.3 (0.0-1.0) % Sodium 137 (136-145) mmol/L Potassium 2.4 L* (3.5-5.1) mmol/L Chloride 100 (98-107) mmol/L Carbon Dioxide 22 (21-32) mmol/L Anion Gap 17.4 H (7-13) mEq/L BUN 22 H (7-18) mg/dL Creatinine 1.60 H (0.55-1.02) mg/dL Est Cr Clr Drug Dosing 21.78 mL/min Estimated GFR (MDRD) 31 BUN/Creatinine Ratio 13.8 (No establ ref range) Glucose 109 H (70-99) mg/dL Lactic Acid 1.0 (0.4-2.0) mmol/L Calcium 8.3 L (8.5-10.1) mg/dL Phosphorus 2.5 L (2.6-4.7) mg/dL Magnesium 1.6 L (1.8-2.4) mg/dL Total Bilirubin 0.4 (0.2-1.0) mg/dL AST 34 (15-37) U/L ALT 26 (14-59) U/L Alkaline Phosphatase 51 (46-116) U/L Lactate Dehydrogenase 223 (81-234) U/L Creatine Kinase 221 H (16-191) U/L C-Reactive Protein 0.4 (0.0-0.9) mg/dL Total Protein 6.1 L (6.4-8.2) g/dL Albumin 2.9 L (3.4-5.0) g/dL Globulin 3.2 Albumin/Globulin Ratio 0.91 Amylase 29 (25-115) U/L Lipase 108 (73-393) U/L TSH, Ultra Sensitive 0.88 (0.36-3.74) uIU/mL Urine Color (YELLOW) Urine Appearance (CLEAR) Urine pH (5.0-9.0) Ur Specific [place] (1.005-1.030) Urine Protein (NEGATIVE) Urine Glucose (UA) (NEGATIVE) Urine Ketones (NEGATIVE) Urine Occult Blood (NEGATIVE) Urine Nitrite (NEGATIVE) Urine Bilirubin (NEGATIVE) Urine Urobilinogen (0.2-1.0) mg/dL Ur Leukocyte Esterase (NEGATIVE) Urine RBC (0-5) /HPF Urine WBC (0-5/HPF) /HPF Ur Epithelial Cells (NOT SEEN) /HPF Amorphous Sediment (NOT SEEN) /HPF Urine Bacteria (0-FEW/HPF) /HPF Urine Mucus (NOT SEEN) /LPF SARS-CoV-2 RNA (NICK) (NEGATIVE) 04/05/21 04/05/21 04/06/21 Range/Units 14:05 14:32 05:25 WBC (5.0-10.0) 10^3/uL RBC (4.2-5.4) 10^6/uL Hgb (12.0-16.0) g/dL Hct (37.0-47.0) % MCV (80-100) fL MCH (27.0-34.0) pg MCHC (33.0-35.0) g/dL Plt Count (150-450) 10^3/uL Neut % (Auto) (42.2-75.2) % Lymph % (Auto) (20.5-50.1) % [place] % (Auto) (2-8) % Eos % (Auto) (1.0-3.0) % Baso % (Auto) (0.0-1.0) % Sodium 142 (136-145) mmol/L Potassium 3.2 L (3.5-5.1) mmol/L Chloride 107 (98-107) mmol/L Carbon Dioxide 20 L (21-32) mmol/L Anion Gap 18.2 H (7-13) mEq/L BUN 16 (7-18) mg/dL Creatinine 1.36 H (0.55-1.02) mg/dL Est Cr Clr Drug Dosing 25.58 mL/min Estimated GFR (MDRD) 37 BUN/Creatinine Ratio (No establ ref range) Glucose 79 (70-99) mg/dL Lactic Acid (0.4-2.0) mmol/L Calcium 7.6 L (8.5-10.1) mg/dL Phosphorus 2.9 (2.6-4.7) mg/dL Magnesium 1.5 L (1.8-2.4) mg/dL Total Bilirubin (0.2-1.0) mg/dL AST (15-37) U/L ALT (14-59) U/L Alkaline Phosphatase (46-116) U/L Lactate Dehydrogenase (81-234) U/L Creatine Kinase (16-191) U/L C-Reactive Protein (0.0-0.9) mg/dL Total Protein (6.4-8.2) g/dL Albumin (3.4-5.0) g/dL Globulin Albumin/Globulin Ratio Amylase (25-115) U/L Lipase (73-393) U/L TSH, Ultra Sensitive (0.36-3.74) uIU/mL Urine Color Yellow (YELLOW) Urine Appearance Slightly cloudy (CLEAR) Urine pH 6.0 (5.0-9.0) Ur Specific [place] 1.015 (1.005-1.030) Urine Protein Trace H (NEGATIVE) Urine Glucose (UA) Negative (NEGATIVE) Urine Ketones Negative (NEGATIVE) Urine Occult Blood Trace-intact H (NEGATIVE) Urine Nitrite Negative (NEGATIVE) Urine Bilirubin Negative (NEGATIVE) Urine Urobilinogen 0.2 (0.2-1.0) mg/dL Ur Leukocyte Esterase Large H (NEGATIVE) Urine RBC 0-5 (0-5) /HPF Urine WBC Packed H (0-5/HPF) /HPF Ur Epithelial Cells Rare (NOT SEEN) /HPF Amorphous Sediment Few (NOT SEEN) /HPF Urine Bacteria Moderate H (0-FEW/HPF) /HPF Urine Mucus Few H (NOT SEEN) /LPF SARS-CoV-2 RNA (NICK) Negative (NEGATIVE) 04/06/21 Range/Units 05:25 WBC 5.0 (5.0-10.0) 10^3/uL RBC 2.80 L (4.2-5.4) 10^6/uL Hgb 8.8 L D (12.0-16.0) g/dL Hct 26.8 L (37.0-47.0) % MCV 95.7 (80-100) fL MCH 31.4 (27.0-34.0) pg MCHC 32.8 L (33.0-35.0) g/dL Plt Count 218 (150-450) 10^3/uL Neut % (Auto) 63.4 (42.2-75.2) % Lymph % (Auto) 13.5 L (20.5-50.1) % [place] % (Auto) 15.3 H (2-8) % Eos % (Auto) 7.4 H (1.0-3.0) % Baso % (Auto) 0.4 (0.0-1.0) % Sodium (136-145) mmol/L Potassium (3.5-5.1) mmol/L Chloride (98-107) mmol/L Carbon Dioxide (21-32) mmol/L Anion Gap (7-13) mEq/L BUN (7-18) mg/dL Creatinine (0.55-1.02) mg/dL Est Cr Clr Drug Dosing mL/min Estimated GFR (MDRD) BUN/Creatinine Ratio (No establ ref range) Glucose (70-99) mg/dL Lactic Acid (0.4-2.0) mmol/L Calcium (8.5-10.1) mg/dL Phosphorus (2.6-4.7) mg/dL Magnesium (1.8-2.4) mg/dL Total Bilirubin (0.2-1.0) mg/dL AST (15-37) U/L ALT (14-59) U/L Alkaline Phosphatase (46-116) U/L Lactate Dehydrogenase (81-234) U/L Creatine Kinase (16-191) U/L C-Reactive Protein (0.0-0.9) mg/dL Total Protein (6.4-8.2) g/dL Albumin (3.4-5.0) g/dL Globulin Albumin/Globulin Ratio Amylase (25-115) U/L Lipase (73-393) U/L TSH, Ultra Sensitive (0.36-3.74) uIU/mL Urine Color (YELLOW) Urine Appearance (CLEAR) Urine pH (5.0-9.0) Ur Specific [place] (1.005-1.030) Urine Protein (NEGATIVE) Urine Glucose (UA) (NEGATIVE) Urine Ketones (NEGATIVE) Urine Occult Blood (NEGATIVE) Urine Nitrite (NEGATIVE) Urine Bilirubin (NEGATIVE) Urine Urobilinogen (0.2-1.0) mg/dL Ur Leukocyte Esterase (NEGATIVE) Urine RBC (0-5) /HPF Urine WBC (0-5/HPF) /HPF Ur Epithelial Cells (NOT SEEN) /HPF Amorphous Sediment (NOT SEEN) /HPF Urine Bacteria (0-FEW/HPF) /HPF Urine Mucus (NOT SEEN) /LPF SARS-CoV-2 RNA (NICK) (NEGATIVE) [place] Results Last 24 Hours: Microbiology 04/05/21 14:05 Urine Culture - Preliminary Urine, Voided 04/05/21 12:34 Stool Occult Blood ([place]) - Final Stool / Feces NEGATIVE OCCULT BLOOD REFERENCE RANGE: NEGATIVE Med Orders - Current: Current Medications Acetaminophen (Acetaminophen 500 Mg Tab) 1,000 mg PO Q8H PRN PRN Reason: Pain (Mild 1-3)/fever Last Admin: 04/06/21 08:29 Dose: 1,000 mg Documented by: Hydrocodone Bitart/Acetaminophen (Acetaminophen/Hydrocodone 325-10 Mg Tab) 0.5 tab PO Q4H PRN PRN Reason: Pain (moderate 4-6) Ciprofloxacin (Ciprofloxacin 500 Mg Tab) 250 mg PO BID [facility] Last Admin: 04/06/21 08:32 Dose: 250 mg Documented by: Fluoxetine HCl (Fluoxetine 10 Mg Cap) 20 mg PO DAILY [facility] Last Admin: 04/06/21 08:31 Dose: 20 mg Documented by: Heparin Sodium (Porcine) (Heparin Sodium 5,000 Units/Ml Vial) 5,000 units SUBCUT Q8HR [facility] Last Admin: 04/06/21 07:32 Dose: 5,000 units Documented by: Magnesium Oxide (Magnesium Oxide 250 Mg Tab) 500 mg PO TID [facility] Stop: 04/07/21 09:01 Multivitamins/Minerals (Multivitamins With Iron/Calcium/Folic Acid/Minerals Tab) 1 tab PO DAILY [facility] Last Admin: 04/06/21 08:32 Dose: 1 tab Documented by: Omeprazole (Omeprazole 20 Mg Cap.Cr) 20 mg PO BID [facility] Last Admin: 04/06/21 08:31 Dose: 20 mg Documented by: Ondansetron HCl (Ondansetron 4 Mg Tab.Dis) 4 mg PO Q4H PRN PRN Reason: nausea, able to take PO Ondansetron HCl (Ondansetron 4 Mg/2 Ml Sdv) 4 mg IVPUSH Q4H PRN PRN Reason: Nausea/Vomiting Potassium Chloride (Potassium Chloride 10 Meq Tab.Er) 40 meq PO TID [facility] Stop: 04/06/21 21:01 Sodium Chloride (Sodium Chloride 0.9% 10 Ml Syringe) 10 ml FLUSH ASDIRECTED PRN PRN Reason: Keep Vein Open Last Admin: 04/05/21 12:53 Dose: 10 ml Documented by: Sodium Phosphate (Phosphorus #1 250 Mg Tab) 250 mg PO QID [facility] Stop: 04/06/21 13:01 Last Admin: 04/06/21 08:31 Dose: 250 mg Documented by: Temazepam (Temazepam 15 Mg Cap) 15 mg PO BEDTIME PRN PRN Reason: Sleep Discontinued Medications Acetaminophen (Acetaminophen 325 Mg Tab) 650 mg PO Q4H PRN PRN Reason: Pain (Mild 1-3)/fever Acetaminophen (Acetaminophen 325 Mg Tab) 1,000 mg PO Q8H PRN PRN Reason: Pain (Mild 1-3)/fever Last Admin: 04/05/21 20:43 Dose: 1,000 mg Documented by: Famotidine (Famotidine 20 Mg Tab) 20 mg PO BID [facility] Sodium Chloride (Normal Saline) 1,000 mls @ 999 mls/hr IV .BOLUS ONE Stop: 04/05/21 13:43 Last Admin: 04/05/21 12:53 Dose: 999 mls/hr Documented by: Potassium Chloride 10 meq/ (Premix) 100 mls @ 50 mls/hr IV Q2H [facility] Stop: 04/06/21 04:29 Last Admin: 04/06/21 07:33 Dose: 50 mls/hr Documented by: Potassium Chloride/Sodium Chloride (Normal Saline With 20 Meq Kcl) 1,000 mls @ 50 mls/hr IV ASDIRECTED [facility] Last Admin: 04/05/21 18:29 Dose: 50 mls/hr Documented by: Potassium Chloride (Kcl In Water 10 Meq/100 Ml) Confirm Administered Dose 100 mls @ as directed .ROUTE .STK-MED ONE Stop: 04/05/21 21:56 Last Admin: 04/05/21 22:52 Dose: 50 mls/hr Documented by: Magnesium Oxide (Magnesium Oxide 250 Mg Tab) 500 mg PO BID [facility] Stop: 04/06/21 09:01 Last Admin: 04/06/21 08:32 Dose: 500 mg Documented by: Non-Formulary Medication (Leflunomide [Arava]) 20 mg PO DAILY [facility] Omeprazole (Omeprazole 20 Mg Cap.Cr) 20 mg PO ACBREAKFAST [facility] Ondansetron HCl (Ondansetron 4 Mg/2 Ml Sdv) 4 mg IV ONETIME ONE Stop: 04/05/21 12:44 Last Admin: 04/05/21 12:53 Dose: 4 mg Documented by: - Exam General: Alert, Oriented Neck: Supple Lungs: Clear to Auscultation, Normal Respiratory Effort Cardiovascular: Regular Rate, Regular Rhythm GI/Abdominal Exam: Normal Bowel Sounds, Soft, Non-Tender Extremities: No Pedal Edema - Patient Data Lab Results Last 24 hrs: Laboratory Results - last 24 hr 04/05/21 04/05/21 04/05/21 Range/Units 12:54 12:54 12:54 WBC 5.8 (5.0-10.0) 10^3/uL RBC 3.28 L (4.2-5.4) 10^6/uL Hgb 10.5 L (12.0-16.0) g/dL Hct 30.7 L (37.0-47.0) % MCV 93.6 D (80-100) fL MCH 32.0 (27.0-34.0) pg MCHC 34.2 (33.0-35.0) g/dL Plt Count 258 D (150-450) 10^3/uL Neut % (Auto) 72.9 (42.2-75.2) % Lymph % (Auto) 9.0 L (20.5-50.1) % [place] % (Auto) 15.9 H (2-8) % Eos % (Auto) 1.9 (1.0-3.0) % Baso % (Auto) 0.3 (0.0-1.0) % Sodium 137 (136-145) mmol/L Potassium 2.4 L* (3.5-5.1) mmol/L Chloride 100 (98-107) mmol/L Carbon Dioxide 22 (21-32) mmol/L Anion Gap 17.4 H (7-13) mEq/L BUN 22 H (7-18) mg/dL Creatinine 1.60 H (0.55-1.02) mg/dL Est Cr Clr Drug Dosing 21.78 mL/min Estimated GFR (MDRD) 31 BUN/Creatinine Ratio 13.8 (No establ ref range) Glucose 109 H (70-99) mg/dL Lactic Acid 1.0 (0.4-2.0) mmol/L Calcium 8.3 L (8.5-10.1) mg/dL Phosphorus 2.5 L (2.6-4.7) mg/dL Magnesium 1.6 L (1.8-2.4) mg/dL Total Bilirubin 0.4 (0.2-1.0) mg/dL AST 34 (15-37) U/L ALT 26 (14-59) U/L Alkaline Phosphatase 51 (46-116) U/L Lactate Dehydrogenase 223 (81-234) U/L Creatine Kinase 221 H (16-191) U/L C-Reactive Protein 0.4 (0.0-0.9) mg/dL Total Protein 6.1 L (6.4-8.2) g/dL Albumin 2.9 L (3.4-5.0) g/dL Globulin 3.2 Albumin/Globulin Ratio 0.91 Amylase 29 (25-115) U/L Lipase 108 (73-393) U/L TSH, Ultra Sensitive 0.88 (0.36-3.74) uIU/mL Urine Color (YELLOW) Urine Appearance (CLEAR) Urine pH (5.0-9.0) Ur Specific [place] (1.005-1.030) Urine Protein (NEGATIVE) Urine Glucose (UA) (NEGATIVE) Urine Ketones (NEGATIVE) Urine Occult Blood (NEGATIVE) Urine Nitrite (NEGATIVE) Urine Bilirubin (NEGATIVE) Urine Urobilinogen (0.2-1.0) mg/dL Ur Leukocyte Esterase (NEGATIVE) Urine RBC (0-5) /HPF Urine WBC (0-5/HPF) /HPF Ur Epithelial Cells (NOT SEEN) /HPF Amorphous Sediment (NOT SEEN) /HPF Urine Bacteria (0-FEW/HPF) /HPF Urine Mucus (NOT SEEN) /LPF SARS-CoV-2 RNA (NICK) (NEGATIVE) 04/05/21 04/05/21 04/06/21 Range/Units 14:05 14:32 05:25 WBC (5.0-10.0) 10^3/uL RBC (4.2-5.4) 10^6/uL Hgb (12.0-16.0) g/dL Hct (37.0-47.0) % MCV (80-100) fL MCH (27.0-34.0) pg MCHC (33.0-35.0) g/dL Plt Count (150-450) 10^3/uL Neut % (Auto) (42.2-75.2) % Lymph % (Auto) (20.5-50.1) % [place] % (Auto) (2-8) % Eos % (Auto) (1.0-3.0) % Baso % (Auto) (0.0-1.0) % Sodium 142 (136-145) mmol/L Potassium 3.2 L (3.5-5.1) mmol/L Chloride 107 (98-107) mmol/L Carbon Dioxide 20 L (21-32) mmol/L Anion Gap 18.2 H (7-13) mEq/L BUN 16 (7-18) mg/dL Creatinine 1.36 H (0.55-1.02) mg/dL Est Cr Clr Drug Dosing 25.58 mL/min Estimated GFR (MDRD) 37 BUN/Creatinine Ratio (No establ ref range) Glucose 79 (70-99) mg/dL Lactic Acid (0.4-2.0) mmol/L Calcium 7.6 L (8.5-10.1) mg/dL Phosphorus 2.9 (2.6-4.7) mg/dL Magnesium 1.5 L (1.8-2.4) mg/dL Total Bilirubin (0.2-1.0) mg/dL AST (15-37) U/L ALT (14-59) U/L Alkaline Phosphatase (46-116) U/L Lactate Dehydrogenase (81-234) U/L Creatine Kinase (16-191) U/L C-Reactive Protein (0.0-0.9) mg/dL Total Protein (6.4-8.2) g/dL Albumin (3.4-5.0) g/dL Globulin Albumin/Globulin Ratio Amylase (25-115) U/L Lipase (73-393) U/L TSH, Ultra Sensitive (0.36-3.74) uIU/mL Urine Color Yellow (YELLOW) Urine Appearance Slightly cloudy (CLEAR) Urine pH 6.0 (5.0-9.0) Ur Specific [place] 1.015 (1.005-1.030) Urine Protein Trace H (NEGATIVE) Urine Glucose (UA) Negative (NEGATIVE) Urine Ketones Negative (NEGATIVE) Urine Occult Blood Trace-intact H (NEGATIVE) Urine Nitrite Negative (NEGATIVE) Urine Bilirubin Negative (NEGATIVE) Urine Urobilinogen 0.2 (0.2-1.0) mg/dL Ur Leukocyte Esterase Large H (NEGATIVE) Urine RBC 0-5 (0-5) /HPF Urine WBC Packed H (0-5/HPF) /HPF Ur Epithelial Cells Rare (NOT SEEN) /HPF Amorphous Sediment Few (NOT SEEN) /HPF Urine Bacteria Moderate H (0-FEW/HPF) /HPF Urine Mucus Few H (NOT SEEN) /LPF SARS-CoV-2 RNA (NICK) Negative (NEGATIVE) 04/06/21 Range/Units 05:25 WBC 5.0 (5.0-10.0) 10^3/uL RBC 2.80 L (4.2-5.4) 10^6/uL Hgb 8.8 L D (12.0-16.0) g/dL Hct 26.8 L (37.0-47.0) % MCV 95.7 (80-100) fL MCH 31.4 (27.0-34.0) pg MCHC 32.8 L (33.0-35.0) g/dL Plt Count 218 (150-450) 10^3/uL Neut % (Auto) 63.4 (42.2-75.2) % Lymph % (Auto) 13.5 L (20.5-50.1) % [place] % (Auto) 15.3 H (2-8) % Eos % (Auto) 7.4 H (1.0-3.0) % Baso % (Auto) 0.4 (0.0-1.0) % Sodium (136-145) mmol/L Potassium (3.5-5.1) mmol/L Chloride (98-107) mmol/L Carbon Dioxide (21-32) mmol/L Anion Gap (7-13) mEq/L BUN (7-18) mg/dL Creatinine (0.55-1.02) mg/dL Est Cr Clr Drug Dosing mL/min Estimated GFR (MDRD) BUN/Creatinine Ratio (No establ ref range) Glucose (70-99) mg/dL Lactic Acid (0.4-2.0) mmol/L Calcium (8.5-10.1) mg/dL Phosphorus (2.6-4.7) mg/dL Magnesium (1.8-2.4) mg/dL Total Bilirubin (0.2-1.0) mg/dL AST (15-37) U/L ALT (14-59) U/L Alkaline Phosphatase (46-116) U/L Lactate Dehydrogenase (81-234) U/L Creatine Kinase (16-191) U/L C-Reactive Protein (0.0-0.9) mg/dL Total Protein (6.4-8.2) g/dL Albumin (3.4-5.0) g/dL Globulin Albumin/Globulin Ratio Amylase (25-115) U/L Lipase (73-393) U/L TSH, Ultra Sensitive (0.36-3.74) uIU/mL Urine Color (YELLOW) Urine Appearance (CLEAR) Urine pH (5.0-9.0) Ur Specific [place] (1.005-1.030) Urine Protein (NEGATIVE) Urine Glucose (UA) (NEGATIVE) Urine Ketones (NEGATIVE) Urine Occult Blood (NEGATIVE) Urine Nitrite (NEGATIVE) Urine Bilirubin (NEGATIVE) Urine Urobilinogen (0.2-1.0) mg/dL Ur Leukocyte Esterase (NEGATIVE) Urine RBC (0-5) /HPF Urine WBC (0-5/HPF) /HPF Ur Epithelial Cells (NOT SEEN) /HPF Amorphous Sediment (NOT SEEN) /HPF Urine Bacteria (0-FEW/HPF) /HPF Urine Mucus (NOT SEEN) /LPF SARS-CoV-2 RNA (NICK) (NEGATIVE) Result Diagrams: 04/06/21 05:25 04/06/21 05:25 [place] Results Last 24 hrs: Microbiology 04/05/21 14:05 Urine Culture - Preliminary Urine, Voided 04/05/21 12:34 Stool Occult Blood ([place]) - Final Stool / Feces NEGATIVE OCCULT BLOOD REFERENCE RANGE: NEGATIVE Sepsis Event Note - Evaluation Sepsis Screening Result: No Definite Risk - Focused Exam Vital Signs: Vital Signs Temp Pulse Resp BP Pulse Ox 04/06/21 04:00 99.3 F 82 18 102/66 92 L - Problem List & Annotations (1) Dehydration SNOMED Code(s): 92770149 Code(s): E86.0 - DEHYDRATION Status: Acute Current Visit: No (2) Diarrhea due to cryptosporidium SNOMED Code(s): 30202329, 226513766 Code(s): A07.2 - CRYPTOSPORIDIOSIS Status: Acute Current Visit: No (3) Generalized weakness SNOMED Code(s): 76648406 Code(s): R53.1 - WEAKNESS Status: Acute Current Visit: No (4) Hematoma SNOMED Code(s): 505152730 Code(s): T14.8XXA - OTHER INJURY OF UNSPECIFIED BODY REGION, INITIAL ENCOUNTER Status: Acute Current Visit: No (5) Hypokalemia SNOMED Code(s): 15714200 Code(s): E87.6 - HYPOKALEMIA Status: Acute Current Visit: No (6) Hypomagnesemia SNOMED Code(s): 041864846 Code(s): E83.42 - HYPOMAGNESEMIA Status: Acute Current Visit: No (7) UTI, Urinary tract infectious disease SNOMED Code(s): 34944011 Code(s): N39.0 - URINARY TRACT INFECTION, SITE NOT SPECIFIED Status: Acute Current Visit: No (8) Unexplained weight loss SNOMED Code(s): 927989231 Code(s): R63.4 - ABNORMAL WEIGHT LOSS Status: Acute Current Visit: No - Problem List Review Problem List Initiated/Reviewed/Updated: Yes - My Orders Last 24 Hours: My Active Orders 04/05/21 16:26 CLOSTRIDIUM DIFFICILE TOX RFLX [MREF] Routine 04/05/21 16:27 Isolation [COMM] Stat 04/05/21 16:30 OT Evaluation and Treatment [CONS] Routine PT Evaluation and Treatment [CONS] Routine 04/05/21 16:52 Oxygen Therapy [RC] PRN Up With Assistance [RC] ASDIRECTED VTE/DVT Education [RC] PER UNIT ROUTINE Vital Signs [RC] 04,08,12,16,20,00 Acetaminophen/HYDROcodone [[place] 325-10 MG] 0.5 tab PO Q4H PRN Ondansetron [Zofran ODT] 4 mg PO Q4H PRN Ondansetron [Zofran] 4 mg IVPUSH Q4H PRN Temazepam [Restoril] 15 mg PO BEDTIME PRN Resuscitation Status Routine 04/05/21 17:00 Phosphorus #1 [Neutra-Phos] 250 mg PO QID 04/05/21 Dinner [place] Diet [DIET] 04/05/21 21:00 Ciprofloxacin [Ciprofloxacin HCl] 250 mg PO BID Omeprazole 20 mg PO BID 04/05/21 22:00 Heparin Sodium 5,000 units SUBCUT Q8HR 04/06/21 08:15 Acetaminophen [Tylenol Extra Strength] 1,000 mg PO Q8H PRN 04/06/21 09:00 FLUoxetine [PROzac] 20 mg PO DAILY Multivitamins w-Iron/Ca/FA/Min [Thera M Plus] 1 tab PO DAILY 04/06/21 14:00 Magnesium Oxide 500 mg PO TID Potassium Chloride [Klor-Con 10] 40 meq PO TID 04/07/21 05:11 MAGNESIUM [CHEM] AM PHOSPHORUS [CHEM] AM 04/07/21 05:15 BASIC METABOLIC PANEL,BMP [CHEM] AM CBC WITH AUTO DIFF [HEME] AM - Plan Plan:: A/P: Diarrhea Previously dx as infectious with Chlamydia and cryptosporidia Previously treated with azithromycin and nitazoxanide Also has h/o milk intolerance Will cont BRAT diet, lactose free diet Will repeat c diff Add Imodium as needed if cdiff is negative black stool per history now stool is loose but brown will monitor for gi bleed, acute blood loss anemia for now increased PPI to BID omeprazole anemia drop is likely at least in part due to hydration will stop IVF recheck hgb in AM Stop omeprazole substitute with pepcid if no apparent gi bleed omeprazole can cause diarrhea as well Severe hypokalemia, hypomagnesemia, hypophosphatemia improved continue supplement Recheck in am SUKHI, dehydration Admission cr. 1.6 - improved stop IVF Recheck renal fx in AM Multiple falls Likely due to dehydration Consult pt Possible UTI Urine cx: pending Started Cipro HTN Hold cozaar re: sukhi Will follow vitals Mood disorder treat with Prozac h/o RA on arava concern for cryptococcus infection with immunosuppression and diarrhea side ef fect encouraged pt to fup with drafter civil (cad) if diarrhea/crypto/chlamydia infection might be related to this medication and substitution would be needed she is reluctant to stop this medication as it has been working well for her RA dvt prophylaxis with sq heparin
[2021-04-06] MEDS: Potassium Chloride 10 MEQ Tab.ER PO SCH ×2 (14:28→18:28)
[2021-04-06] MEDS ORDERED: Potassium Chloride 10 MEQ Tab.ER PO ONE (18:15)
[2021-04-06] MEDS ORDERED: Potassium Chloride 10 MEQ Tab.ER PO SCH (21:00)
[2021-04-07] MEDS: Acetaminophen 500 MG Tab PO PRN ×2 (05:09→22:03)
[2021-04-07] MEDS: Heparin Sodium 5,000 Units/ML Vial SUBCUT SCH ×3 (05:11→22:06)
[2021-04-07] MEDS: Multivitamins with Iron/Calcium/Folic Acid/Minerals Tab PO SCH (08:42)
[2021-04-07] MEDS: Ciprofloxacin 500 MG Tab PO SCH ×2 (08:43→22:05)
[2021-04-07] MEDS: FLUoxetine 10 MG Cap PO SCH (08:44)
[2021-04-07] MEDS: Omeprazole 20 MG Cap.CR PO SCH (08:45)
[2021-04-07] MEDS ORDERED: Loperamide 2 MG Cap PO PRN (11:54)
[2021-04-07] MEDS: Losartan 25 MG Tab PO SCH (12:17)
--- NOTE | 2021-04-07 15:46 | PCM.PN ---
- General Info Date of Service: 04/07/21 Admission Dx/Problem (Free Text): Admission Diagnosis/Problem Admission Diagnosis/Problem Hypokalemia Subjective Update: diarrhea improved no large BM but has small - more incontinence madhuri soft stool associated with urination no associated abd pain, no fever duration is months no apparent exacerbating factors Functional Status: Reports: Pain Controlled, Tolerating Diet, Ambulating - Review of Systems General: Denies: Fever Pulmonary: Denies: Shortness of Breath Cardiovascular: Denies: Chest Pain, Edema Gastrointestinal: Denies: Abdominal Pain Genitourinary: Denies: Dysuria - Patient Data Vitals - Most Recent: Last Vital Signs Temp 97.7 F 04/07/21 12:00 Pulse 83 04/07/21 12:00 Resp 18 04/07/21 12:00 BP 172/96 H 04/07/21 12:17 Pulse Ox 95 04/07/21 12:00 Weight - Most Recent: 112 lb I&O - Last 24 Hours: Intake & Output 04/07/21 04/07/21 04/07/21 06:59 14:59 22:59 Intake Total 400 400 Balance 400 400 Lab Results Last 24 Hours: Laboratory Results - last 24 hr 04/07/21 04/07/21 Range/Units 06:00 06:00 WBC 4.7 L (5.0-10.0) 10^3/uL RBC 2.95 L (4.2-5.4) 10^6/uL Hgb 9.4 L (12.0-16.0) g/dL Hct 28.4 L (37.0-47.0) % MCV 96.3 (80-100) fL MCH 31.9 (27.0-34.0) pg MCHC 33.1 (33.0-35.0) g/dL Plt Count 248 (150-450) 10^3/uL Neut % (Auto) 51.3 (42.2-75.2) % Lymph % (Auto) 24.7 (20.5-50.1) % [place] % (Auto) 15.6 H (2-8) % Eos % (Auto) 7.8 H (1.0-3.0) % Baso % (Auto) 0.6 (0.0-1.0) % Sodium 139 (136-145) mmol/L Potassium 4.0 (3.5-5.1) mmol/L Chloride 106 (98-107) mmol/L Carbon Dioxide 20 L (21-32) mmol/L Anion Gap 17.0 H (7-13) mEq/L BUN 12 (7-18) mg/dL Creatinine 1.11 H (0.55-1.02) mg/dL Est Cr Clr Drug Dosing 31.34 mL/min Estimated GFR (MDRD) 47 Glucose 87 (70-99) mg/dL Calcium 7.9 L (8.5-10.1) mg/dL Phosphorus 2.4 L (2.6-4.7) mg/dL Magnesium 1.7 L (1.8-2.4) mg/dL [place] Results Last 24 Hours: Microbiology 04/06/21 03:00 Clostridioides difficile (PCR) - Final Stool / Feces 04/05/21 14:05 Urine Culture - Final Urine, Voided Klebsiella Pneumoniae Med Orders - Current: Current Medications Acetaminophen (Acetaminophen 500 Mg Tab) 1,000 mg PO Q8H PRN PRN Reason: Pain (Mild 1-3)/fever Last Admin: 04/07/21 05:09 Dose: 1,000 mg Documented by: Hydrocodone Bitart/Acetaminophen (Acetaminophen/Hydrocodone 325-10 Mg Tab) 0.5 tab PO Q4H PRN PRN Reason: Pain (moderate 4-6) Ciprofloxacin (Ciprofloxacin 500 Mg Tab) 250 mg PO BID [facility] Last Admin: 04/07/21 08:43 Dose: 250 mg Documented by: Fluoxetine HCl (Fluoxetine 10 Mg Cap) 20 mg PO DAILY [facility] Last Admin: 04/07/21 08:44 Dose: 20 mg Documented by: Heparin Sodium (Porcine) (Heparin Sodium 5,000 Units/Ml Vial) 5,000 units SUBCUT Q8HR [facility] Last Admin: 04/07/21 14:05 Dose: 5,000 units Documented by: Loperamide HCl (Loperamide 2 Mg Cap) 2 mg PO Q6H PRN PRN Reason: Diarrhea Last Admin: 04/07/21 12:17 Dose: 2 mg Documented by: Losartan Potassium (Losartan 25 Mg Tab) 25 mg PO DAILY [facility] Last Admin: 04/07/21 12:17 Dose: 25 mg Documented by: Magnesium Oxide (Magnesium Oxide 250 Mg Tab) 500 mg PO Q6H [facility] Stop: 04/07/21 21:46 Multivitamins/Minerals (Multivitamins With Iron/Calcium/Folic Acid/Minerals Tab) 1 tab PO DAILY [facility] Last Admin: 04/07/21 08:42 Dose: 1 tab Documented by: Omeprazole (Omeprazole 20 Mg Cap.Cr) 20 mg PO BID [facility] Last Admin: 04/07/21 08:45 Dose: 20 mg Documented by: Ondansetron HCl (Ondansetron 4 Mg Tab.Dis) 4 mg PO Q4H PRN PRN Reason: nausea, able to take PO Last Admin: 04/07/21 08:47 Dose: 4 mg Documented by: Ondansetron HCl (Ondansetron 4 Mg/2 Ml Sdv) 4 mg IVPUSH Q4H PRN PRN Reason: Nausea/Vomiting Sodium Chloride (Sodium Chloride 0.9% 10 Ml Syringe) 10 ml FLUSH ASDIRECTED PRN PRN Reason: Keep Vein Open Last Admin: 04/05/21 12:53 Dose: 10 ml Documented by: Sodium Phosphate (Phosphorus #1 250 Mg Tab) 250 mg PO Q6H [facility] Stop: 04/07/21 21:46 Temazepam (Temazepam 15 Mg Cap) 15 mg PO BEDTIME PRN PRN Reason: Sleep Discontinued Medications Acetaminophen (Acetaminophen 325 Mg Tab) 650 mg PO Q4H PRN PRN Reason: Pain (Mild 1-3)/fever Acetaminophen (Acetaminophen 325 Mg Tab) 1,000 mg PO Q8H PRN PRN Reason: Pain (Mild 1-3)/fever Last Admin: 04/05/21 20:43 Dose: 1,000 mg Documented by: Famotidine (Famotidine 20 Mg Tab) 20 mg PO BID [facility] Sodium Chloride (Normal Saline) 1,000 mls @ 999 mls/hr IV .BOLUS ONE Stop: 04/05/21 13:43 Last Admin: 04/05/21 12:53 Dose: 999 mls/hr Documented by: Potassium Chloride 10 meq/ (Premix) 100 mls @ 50 mls/hr IV Q2H [facility] Stop: 04/06/21 04:29 Last Admin: 04/06/21 07:33 Dose: 50 mls/hr Documented by: Potassium Chloride/Sodium Chloride (Normal Saline With 20 Meq Kcl) 1,000 mls @ 50 mls/hr IV ASDIRECTED [facility] Last Admin: 04/05/21 18:29 Dose: 50 mls/hr Documented by: Potassium Chloride (Kcl In Water 10 Meq/100 Ml) Confirm Administered Dose 100 mls @ as directed .ROUTE .STK-MED ONE Stop: 04/05/21 21:56 Last Admin: 04/05/21 22:52 Dose: 50 mls/hr Documented by: Magnesium Oxide (Magnesium Oxide 250 Mg Tab) 500 mg PO BID [facility] Stop: 04/06/21 09:01 Last Admin: 04/06/21 08:32 Dose: 500 mg Documented by: Magnesium Oxide (Magnesium Oxide 250 Mg Tab) 500 mg PO TID [facility] Stop: 04/07/21 09:01 Last Admin: 04/07/21 08:46 Dose: 500 mg Documented by: Non-Formulary Medication (Leflunomide [Arava]) 20 mg PO DAILY [facility] Omeprazole (Omeprazole 20 Mg Cap.Cr) 20 mg PO ACBREAKFAST [facility] Ondansetron HCl (Ondansetron 4 Mg/2 Ml Sdv) 4 mg IV ONETIME ONE Stop: 04/05/21 12:44 Last Admin: 04/05/21 12:53 Dose: 4 mg Documented by: Potassium Chloride (Potassium Chloride 10 Meq Tab.Er) 40 meq PO TID [facility] Stop: 04/06/21 14:01 Last Admin: 04/06/21 18:28 Dose: Not Given Documented by: Potassium Chloride (Potassium Chloride 10 Meq Tab.Er) 40 meq PO ONETIME ONE Stop: 04/06/21 18:16 Last Admin: 04/06/21 18:29 Dose: 40 meq Documented by: Sodium Phosphate (Phosphorus #1 250 Mg Tab) 250 mg PO QID [facility] Stop: 04/06/21 13:01 Last Admin: 04/06/21 14:27 Dose: 250 mg Documented by: - Exam General: Alert, Oriented Neck: Supple Lungs: Clear to Auscultation, Normal Respiratory Effort Cardiovascular: Regular Rate, Regular Rhythm GI/Abdominal Exam: Normal Bowel Sounds, Soft, Non-Tender Extremities: No Pedal Edema Skin: Warm, Dry Psy/Mental Status: Alert, Normal Affect, Normal Mood - Patient Data Lab Results Last 24 hrs: Laboratory Results - last 24 hr 04/07/21 04/07/21 Range/Units 06:00 06:00 WBC 4.7 L (5.0-10.0) 10^3/uL RBC 2.95 L (4.2-5.4) 10^6/uL Hgb 9.4 L (12.0-16.0) g/dL Hct 28.4 L (37.0-47.0) % MCV 96.3 (80-100) fL MCH 31.9 (27.0-34.0) pg MCHC 33.1 (33.0-35.0) g/dL Plt Count 248 (150-450) 10^3/uL Neut % (Auto) 51.3 (42.2-75.2) % Lymph % (Auto) 24.7 (20.5-50.1) % [place] % (Auto) 15.6 H (2-8) % Eos % (Auto) 7.8 H (1.0-3.0) % Baso % (Auto) 0.6 (0.0-1.0) % Sodium 139 (136-145) mmol/L Potassium 4.0 (3.5-5.1) mmol/L Chloride 106 (98-107) mmol/L Carbon Dioxide 20 L (21-32) mmol/L Anion Gap 17.0 H (7-13) mEq/L BUN 12 (7-18) mg/dL Creatinine 1.11 H (0.55-1.02) mg/dL Est Cr Clr Drug Dosing 31.34 mL/min Estimated GFR (MDRD) 47 Glucose 87 (70-99) mg/dL Calcium 7.9 L (8.5-10.1) mg/dL Phosphorus 2.4 L (2.6-4.7) mg/dL Magnesium 1.7 L (1.8-2.4) mg/dL Result Diagrams: 04/07/21 06:00 04/07/21 06:00 [place] Results Last 24 hrs: Microbiology 04/06/21 03:00 Clostridioides difficile (PCR) - Final Stool / Feces 04/05/21 14:05 Urine Culture - Final Urine, Voided Klebsiella Pneumoniae Sepsis Event Note - Evaluation Sepsis Screening Result: No Definite Risk - Focused Exam Vital Signs: Vital Signs Temp Pulse Resp BP BP Pulse Ox 04/07/21 12:17 172/96 H 04/07/21 12:00 97.7 F 83 18 164/86 H 95 04/07/21 07:48 97.1 F 81 18 172/96 H 97 04/07/21 05:00 98.9 F 82 20 169/89 H 94 L - Problem List & Annotations (1) Dehydration SNOMED Code(s): 69520065 Code(s): E86.0 - DEHYDRATION Status: Acute Current Visit: No (2) Diarrhea due to cryptosporidium SNOMED Code(s): 23455463, 637784885 Code(s): A07.2 - CRYPTOSPORIDIOSIS Status: Acute Current Visit: No (3) Generalized weakness SNOMED Code(s): 98308587 Code(s): R53.1 - WEAKNESS Status: Acute Current Visit: No (4) Hematoma SNOMED Code(s): 922368010 Code(s): T14.8XXA - OTHER INJURY OF UNSPECIFIED BODY REGION, INITIAL ENCOUNTER Status: Acute Current Visit: No (5) Hypokalemia SNOMED Code(s): 17467151 Code(s): E87.6 - HYPOKALEMIA Status: Acute Current Visit: No (6) Hypomagnesemia SNOMED Code(s): 727817388 Code(s): E83.42 - HYPOMAGNESEMIA Status: Acute Current Visit: No (7) UTI, Urinary tract infectious disease SNOMED Code(s): 33603660 Code(s): N39.0 - URINARY TRACT INFECTION, SITE NOT SPECIFIED Status: Acute Current Visit: No (8) Unexplained weight loss SNOMED Code(s): 767243790 Code(s): R63.4 - ABNORMAL WEIGHT LOSS Status: Acute Current Visit: No - Problem List Review Problem List Initiated/Reviewed/Updated: Yes - My Orders Last 24 Hours: My Active Orders 04/07/21 11:54 Loperamide [Imodium] 2 mg PO Q6H PRN 04/07/21 12:00 Losartan [Cozaar] 25 mg PO DAILY 04/07/21 15:45 Magnesium Oxide 500 mg PO Q6H Phosphorus #1 [Neutra-Phos] 250 mg PO Q6H 04/08/21 05:11 MAGNESIUM [CHEM] AM PHOSPHORUS [CHEM] AM 04/08/21 05:15 BASIC METABOLIC PANEL,BMP [CHEM] AM CBC WITH AUTO DIFF [HEME] AM - Plan Plan:: A/P: Diarrhea Previously dx as infectious with Chlamydia and cryptosporidia Previously treated with azithromycin and nitazoxanide Also has h/o milk intolerance Will cont BRAT diet, lactose free diet c diff negative Add Imodium as needed black stool per history now stool is loose but brown will monitor for gi bleed, acute blood loss anemia no worsening anemia stop omeprazole add pepcid anemia drop is likely at least in part due to hydration off IVF hgb stable recheck hgb in AM Stop omeprazole substitute with pepcid if no apparent gi bleed omeprazole can cause diarrhea as well Severe hypokalemia, hypomagnesemia, hypophosphatemia improved continue supplement of phos, magnesium Recheck in am SUKHI, dehydration Admission cr. 1.6 - improved stopped IVF Recheck renal fx in AM Multiple falls Likely due to dehydration Consulted pt improving Possible UTI Urine cx: pending Started Cipro HTN uncontrolled resume cozaar Will follow vitals Mood disorder treat with Prozac h/o RA on arava concern for cryptococcus infection with immunosuppression and diarrhea side effect encouraged pt to fup with senior grant writer if diarrhea/crypto/chlamydia infection might be related to this medication and substitution would be needed she is reluctant to stop this medication as it has been working well for her RA dvt prophylaxis with sq heparin
[2021-04-07] MEDS: Phosphorus #1 250 MG Tab PO SCH ×2 (17:29→22:05)
[2021-04-07] MEDS ORDERED: Famotidine 20 MG Tab PO SCH (21:00)
[2021-04-08] MEDS: Heparin Sodium 5,000 Units/ML Vial SUBCUT SCH (05:20)
[2021-04-08] MEDS: Acetaminophen 500 MG Tab PO PRN (06:03)
[2021-04-08 07:18] LABS: ANION GAP 13.8 mEq/L (7-13)
[2021-04-08 07:48] VITALS: BP 165/86; PULSE 83
[2021-04-08] MEDS: FLUoxetine 10 MG Cap PO SCH (08:32)
[2021-04-08] MEDS: Ciprofloxacin 500 MG Tab PO SCH (08:32)
[2021-04-08] MEDS: Multivitamins with Iron/Calcium/Folic Acid/Minerals Tab PO SCH (08:33)
[2021-04-08] MEDS: Losartan 25 MG Tab PO SCH (08:33)
[2021-04-08] MEDS ORDERED: Famotidine 20 MG Tab PO SCH (09:00)
--- NOTE | 2021-04-08 11:55 | PCM.DCSUM1 ---
Discharge Summary - Hospital Course Free Text/Narrative:: Diarrhea Previously dx as infectious with Chlamydia and cryptosporidia Previously treated with azithromycin and nitazoxanide Also has h/o milk intolerance continue BRAT diet, lactose free diet c diff negative Imodium as needed chucky lf/up with dr Anna - GI black stool per history now stool is loose but brown no apparent gi bleed, acute blood loss anemia no worsening anemia stop omeprazole (as a possible cause of diarrhea) added pepcid anemia drop is likely at least in part due to hydration off IVF hgb stable Severe hypokalemia, hypomagnesemia, hypophosphatemia resolved with replacement Recheck periodically SUKHI, dehydration Admission cr. 1.6 - improved Recheck renal fx periodically Multiple falls Likely due to dehydration will arrange home care pt: fopr strengthening nursing for eval, education of htn, diarrhea, dehydration UTI Urine cx: klebsiella Started Cipro HTN uncontrolled increased cozaar - monitor with CKD Mood disorder treat with Prozac h/o RA on arava concern for cryptococcus infection with immunosuppression and diarrhea side effect encouraged pt to fup with section gang if diarrhea/crypto/chlamydia infection might be related to this medication and substitution would be needed she is reluctant to stop this medication as it has been working well for her RA Diagnosis: Stroke: No - Discharge Data Discharge Date: 04/08/21 Discharge Disposition: Home, W Home Health Agency 06 Condition: Good - Referral to Home Health Date of Face to Face Encounter: 04/08/21 Reason for Homebound Status: weakness, walking with walker, Primary Care Physician: PCP None Skilled Need: [facility]Urse for evaluation, teaching re: diarrhea, sukhi, htn. PT: for strenghtening - Discharge Diagnosis/Problem(s) (1) Dehydration SNOMED Code(s): 70900444 ICD Code: E86.0 - DEHYDRATION Status: Acute Current Visit: No (2) Diarrhea due to cryptosporidium SNOMED Code(s): 58235906, 044853966 ICD Code: A07.2 - CRYPTOSPORIDIOSIS Status: Acute Current Visit: No (3) Generalized weakness SNOMED Code(s): 01082637 ICD Code: R53.1 - WEAKNESS Status: Acute Current Visit: No (4) Hematoma SNOMED Code(s): 211346661 ICD Code: T14.8XXA - OTHER INJURY OF UNSPECIFIED BODY REGION, INITIAL ENCOUNTER Status: Acute Current Visit: No (5) Hypokalemia SNOMED Code(s): 27701954 ICD Code: E87.6 - HYPOKALEMIA Status: Acute Current Visit: No (6) Hypomagnesemia SNOMED Code(s): 572728674 ICD Code: E83.42 - HYPOMAGNESEMIA Status: Acute Current Visit: No (7) UTI, Urinary tract infectious disease SNOMED Code(s): 95133090 ICD Code: N39.0 - URINARY TRACT INFECTION, SITE NOT SPECIFIED Status: Acute Current Visit: No (8) Unexplained weight loss SNOMED Code(s): 135116903 ICD Code: R63.4 - ABNORMAL WEIGHT LOSS Status: Acute Current Visit: No - Patient Summary/Data Consults: Consultations 04/05/21 16:30 OT Evaluation and Treatment [CONS] Routine PT Evaluation and Treatment [CONS] Routine - Patient Instructions Diet: Heart Healthy Diet Activity: As Tolerated - Discharge Plan *PRESCRIPTION DRUG MONITORING PROGRAM REVIEWED*: Not Applicable *COPY OF PRESCRIPTION DRUG MONITORING REPORT IN PATIENT [place]: Not Applicable Prescriptions/Med Rec: Ciprofloxacin [Ciprofloxacin HCl] 250 mg PO BID #5 tablet Losartan [Cozaar] 50 mg PO DAILY #30 tablet Loperamide [Imodium] 2 mg PO Q6H PRN #6 cap PRN Reason: Diarrhea Famotidine [Pepcid] 20 mg PO DAILY #30 tablet Home Medications: Home Meds Acetaminophen [Tylenol Arthritis] 1,300 mg PO BID 09/02/15 [History] FLUoxetine [PROzac] 20 mg PO DAILY 09/02/15 [History] Leflunomide [Arava] 20 mg PO DAILY 04/05/21 [History] Multivit,Calc,Mins/Iron/Folic [Women's Daily Formula Caplet] 1 each PO DAILY 04/05/21 [History] Ciprofloxacin [Ciprofloxacin HCl] 250 mg PO BID #5 tablet 04/08/21 [Rx] Famotidine [Pepcid] 20 mg PO DAILY #30 tablet 04/08/21 [Rx] Loperamide [Imodium] 2 mg PO Q6H PRN #6 cap 04/08/21 [Rx] Losartan [Cozaar] 50 mg PO DAILY #30 tablet 04/08/21 [Rx] Oxygen Therapy Mode: Room Air Patient Handouts: Loperamide tablets or capsules, Famotidine tablets or gelcaps, Diarrhea, Adult, Losartan Tablets, Hypokalemia, Food Choices to Help Relieve Diarrhea, Adult, Ciprofloxacin tablets Referrals: Luis Manuel Guthrie MD [Physician] - - Discharge Summary/Plan Comment DC Time >30 min.: Yes Total # of Minutes for Discharge Time: 35 min , cat discussion, home care arrangements - General Info Date of Service: 04/08/21 - Review of Systems General: Reports: Weakness (improved, up and ambulating with walker). Denies: Fever Pulmonary: Denies: Shortness of Breath Gastrointestinal: Reports: Diarrhea (improved). Denies: Abdominal Pain Genitourinary: Reports: Dysuria Neurological: Denies: Confusion - Patient Data Vitals - Most Recent: Last Vital Signs Temp 98.0 F 04/08/21 07:48 Pulse 83 04/08/21 07:48 Resp 18 04/08/21 07:48 BP 165/86 H 04/08/21 08:33 Pulse Ox 97 04/08/21 07:48 Weight - Most Recent: 112 lb I&O - Last 24 hours: Intake & Output 04/07/21 04/08/21 04/08/21 22:59 06:59 14:59 Intake Total 380 250 450 Balance 380 250 450 Lab Results - Last 24 hrs: Laboratory Results - last 24 hr 04/08/21 04/08/21 Range/Units 06:10 06:10 WBC 5.9 (5.0-10.0) 10^3/uL RBC 2.85 L (4.2-5.4) 10^6/uL Hgb 9.1 L (12.0-16.0) g/dL Hct 27.8 L (37.0-47.0) % MCV 97.5 (80-100) fL MCH 31.9 (27.0-34.0) pg MCHC 32.7 L (33.0-35.0) g/dL Plt Count 235 (150-450) 10^3/uL Neut % (Auto) 64.7 (42.2-75.2) % Lymph % (Auto) 16.7 L (20.5-50.1) % [place] % (Auto) 12.0 H (2-8) % Eos % (Auto) 6.1 H (1.0-3.0) % Baso % (Auto) 0.5 (0.0-1.0) % Sodium 140 (136-145) mmol/L Potassium 3.8 (3.5-5.1) mmol/L Chloride 106 (98-107) mmol/L Carbon Dioxide 24 (21-32) mmol/L Anion Gap 13.8 H (7-13) mEq/L BUN 10 (7-18) mg/dL Creatinine 1.07 H (0.55-1.02) mg/dL Est Cr Clr Drug Dosing 32.51 mL/min Estimated GFR (MDRD) 49 Glucose 90 (70-99) mg/dL Calcium 8.0 L (8.5-10.1) mg/dL Phosphorus 3.1 (2.6-4.7) mg/dL Magnesium 1.7 L (1.8-2.4) mg/dL SHAD Results - Last 24 hrs: Microbiology 04/06/21 03:00 Clostridioides difficile (PCR) - Final Stool / Feces 04/05/21 14:05 Urine Culture - Final Urine, Voided Klebsiella Pneumoniae Med Orders - Current: Current Medications Acetaminophen (Acetaminophen 500 Mg Tab) 1,000 mg PO Q8H PRN PRN Reason: Pain (Mild 1-3)/fever Last Admin: 04/08/21 06:03 Dose: 1,000 mg Documented by: Hydrocodone Bitart/Acetaminophen (Acetaminophen/Hydrocodone 325-10 Mg Tab) 0.5 tab PO Q4H PRN PRN Reason: Pain (moderate 4-6) Ciprofloxacin (Ciprofloxacin 500 Mg Tab) 250 mg PO BID [facility] Last Admin: 04/08/21 08:32 Dose: 250 mg Documented by: Famotidine (Famotidine 20 Mg Tab) 20 mg PO DAILY [facility] Last Admin: 04/08/21 08:32 Dose: 20 mg Documented by: Fluoxetine HCl (Fluoxetine 10 Mg Cap) 20 mg PO DAILY [facility] Last Admin: 04/08/21 08:32 Dose: 20 mg Documented by: Heparin Sodium (Porcine) (Heparin Sodium 5,000 Units/Ml Vial) 5,000 units SUBCUT Q8HR [facility] Last Admin: 04/08/21 05:20 Dose: 5,000 units Documented by: Loperamide HCl (Loperamide 2 Mg Cap) 2 mg PO Q6H PRN PRN Reason: Diarrhea Last Admin: 04/07/21 12:17 Dose: 2 mg Documented by: Losartan Potassium (Losartan 25 Mg Tab) 25 mg PO DAILY [facility] Last Admin: 04/08/21 08:33 Dose: 25 mg Documented by: Multivitamins/Minerals (Multivitamins With Iron/Calcium/Folic Acid/Minerals Tab) 1 tab PO DAILY [facility] Last Admin: 04/08/21 08:33 Dose: 1 tab Documented by: Ondansetron HCl (Ondansetron 4 Mg Tab.Dis) 4 mg PO Q4H PRN PRN Reason: nausea, able to take PO Last Admin: 04/07/21 08:47 Dose: 4 mg Documented by: Ondansetron HCl (Ondansetron 4 Mg/2 Ml Sdv) 4 mg IVPUSH Q4H PRN PRN Reason: Nausea/Vomiting Sodium Chloride (Sodium Chloride 0.9% 10 Ml Syringe) 10 ml FLUSH ASDIRECTED PRN PRN Reason: Keep Vein Open Last Admin: 04/05/21 12:53 Dose: 10 ml Documented by: Temazepam (Temazepam 15 Mg Cap) 15 mg PO BEDTIME PRN PRN Reason: Sleep Discontinued Medications Acetaminophen (Acetaminophen 325 Mg Tab) 650 mg PO Q4H PRN PRN Reason: Pain (Mild 1-3)/fever Acetaminophen (Acetaminophen 325 Mg Tab) 1,000 mg PO Q8H PRN PRN Reason: Pain (Mild 1-3)/fever Last Admin: 04/05/21 20:43 Dose: 1,000 mg Documented by: Famotidine (Famotidine 20 Mg Tab) 20 mg PO BID [facility] Famotidine (Famotidine 20 Mg Tab) 20 mg PO BID [facility] Sodium Chloride (Normal Saline) 1,000 mls @ 999 mls/hr IV .BOLUS ONE Stop: 04/05/21 13:43 Last Admin: 04/05/21 12:53 Dose: 999 mls/hr Documented by: Potassium Chloride 10 meq/ (Premix) 100 mls @ 50 mls/hr IV Q2H [facility] Stop: 04/06/21 04:29 Last Admin: 04/06/21 07:33 Dose: 50 mls/hr Documented by: Potassium Chloride/Sodium Chloride (Normal Saline With 20 Meq Kcl) 1,000 mls @ 50 mls/hr IV ASDIRECTED [facility] Last Admin: 04/05/21 18:29 Dose: 50 mls/hr Documented by: Potassium Chloride (Kcl In Water 10 Meq/100 Ml) Confirm Administered Dose 100 mls @ as directed .ROUTE .STK-MED ONE Stop: 04/05/21 21:56 Last Admin: 04/05/21 22:52 Dose: 50 mls/hr Documented by: Magnesium Oxide (Magnesium Oxide 250 Mg Tab) 500 mg PO BID [facility] Stop: 04/06/21 09:01 Last Admin: 04/06/21 08:32 Dose: 500 mg Documented by: Magnesium Oxide (Magnesium Oxide 250 Mg Tab) 500 mg PO TID [facility] Stop: 04/07/21 09:01 Last Admin: 04/07/21 08:46 Dose: 500 mg Documented by: Magnesium Oxide (Magnesium Oxide 250 Mg Tab) 500 mg PO Q6H [facility] Stop: 04/07/21 21:46 Last Admin: 04/07/21 22:04 Dose: 500 mg Documented by: Non-Formulary Medication (Leflunomide [Arava]) 20 mg PO DAILY [facility] Omeprazole (Omeprazole 20 Mg Cap.Cr) 20 mg PO ACBREAKFAST [facility] Omeprazole (Omeprazole 20 Mg Cap.Cr) 20 mg PO BID [facility] Last Admin: 04/07/21 08:45 Dose: 20 mg Documented by: Ondansetron HCl (Ondansetron 4 Mg/2 Ml Sdv) 4 mg IV ONETIME ONE Stop: 04/05/21 12:44 Last Admin: 04/05/21 12:53 Dose: 4 mg Documented by: Potassium Chloride (Potassium Chloride 10 Meq Tab.Er) 40 meq PO TID [facility] Stop: 04/06/21 14:01 Last Admin: 04/06/21 18:28 Dose: Not Given Documented by: Potassium Chloride (Potassium Chloride 10 Meq Tab.Er) 40 meq PO ONETIME ONE Stop: 04/06/21 18:16 Last Admin: 04/06/21 18:29 Dose: 40 meq Documented by: Sodium Phosphate (Phosphorus #1 250 Mg Tab) 250 mg PO QID [facility] Stop: 04/06/21 13:01 Last Admin: 04/06/21 14:27 Dose: 250 mg Documented by: Sodium Phosphate (Phosphorus #1 250 Mg Tab) 250 mg PO Q6H [facility] Stop: 04/07/21 21:46 Last Admin: 04/07/21 22:05 Dose: 250 mg Documented by: - Exam General: Reports: Alert, Oriented Neck: Reports: Supple Lungs: Reports: Clear to Auscultation, Normal Respiratory Effort Cardiovascular: Reports: Regular Rate, Regular Rhythm GI/Abdominal Exam: Normal Bowel Sounds, Soft, Non-Tender Extremities: No Pedal Edema
== END 2021-04-08 12:40 | disposition home health service (06) | DRG 641 ==
LOC: DL.ED 11:37 → DL.MS 15:27
PROVIDERS: ADMIT Internal Medicine; ATTEND Internal Medicine
DX: E87.6 Hypokalemia (principal); A07.2 Cryptosporidiosis; N39.0 Urinary tract infection, site not specified; N17.9 Acute kidney failure, unspecified; R53.1 Weakness; A04.5 Campylobacter enteritis; R29.6 Repeated falls; E83.42 Hypomagnesemia; R63.4 Abnormal weight loss; F41.1 Generalized anxiety disorder; E78.5 Hyperlipidemia, unspecified; Z20.822 Contact with and (suspected) exposure to COVID-19; M19.90 Unspecified osteoarthritis, unspecified site; K21.9 Gastro-esophageal reflux disease without esophagitis; M06.9 Rheumatoid arthritis, unspecified; Z85.828 Personal history of other malignant neoplasm of skin; H91.90 Unspecified hearing loss, unspecified ear; H54.7 Unspecified visual loss; N18.9 Chronic kidney disease, unspecified; F32.A Depression, unspecified; I12.9 Hypertensive chronic kidney disease with stage 1 through stage 4 chronic kidney disease, or unspecified chronic kidney disease; E83.39 Other disorders of phosphorus metabolism; E86.0 Dehydration; F39 Unspecified mood [affective] disorder; Z28.82 Immunization not carried out because of caregiver refusal; Z88.0 Allergy status to penicillin; Z79.899 Other long term (current) drug therapy
CPT/HCPCS: 36415; 80053; 81001; 82150; 82272; 82550; 83605; 83615; 83690; 83735; 84100; 84443; 85025; 86140; 87086; 87088; 87186; 96374; 99285; J2405; J7030; U0002; 80048; 87493; 97165-GO; A9270-GY; J1644; J3480

== ENCOUNTER 2021-05-15 06:39 | Day surgery (SDC) | payer MEDICARE, BC ==
[~2021-05-15 06:39] MED LIST: Dextrose 5%-0.45% NaCl 1,000 ML IV SCH; Midazolam 1 MG/ML 2 ML SDV ONE; Sodium Chloride 0.9% 10 ML Syringe FLUSH PRN; Sodium Chloride 0.9% 10 ML Syringe FLUSH SCH; fentaNYL 100 MCG/2 ML SDV ONE
[2021-05-15] MEDS ORDERED: Midazolam 1 MG/ML 2 ML SDV IV ONE ×6 (06:40→08:09)
[2021-05-15] MEDS ORDERED: fentaNYL 100 MCG/2 ML SDV IV ONE ×4 (06:40→07:57)
[2021-05-15 11:13] VITALS: BP 132/71; PULSE 75
== END 2021-05-15 10:38 | disposition home or self-care (01) ==
LOC: DL.ENDO 06:39
PROVIDERS: ATTEND Internal Medicine Gastroenterology
DX: K52.831 Collagenous colitis (principal); K57.30 Diverticulosis of large intestine without perforation or abscess without bleeding; F41.1 Generalized anxiety disorder; F32.A Depression, unspecified; I10 Essential (primary) hypertension; K21.9 Gastro-esophageal reflux disease without esophagitis; Z01.812 Encounter for preprocedural laboratory examination; Z20.822 Contact with and (suspected) exposure to COVID-19
CPT/HCPCS: 45380; J2250; J3010; J7042; U0002

== ENCOUNTER → 2021-08-29 | Day surgery (SDC) | payer MEDICARE, BC ==
[~2021-08-29] MED LIST changes: +Acetaminophen 325 MG Tab PO PRN; +Acetaminophen/Codeine 300-30 MG Tab PO PRN; +Apraclonidine 0.5% Ophth Soln 5 ML Bot EYELF ONE; +Balanced Salt Solution Ophth Irrig 500 ML Bottle IOCULAR ONE; +Cataract Ophth Solution EYELF ONE; +Chondroitin Sulfate/Hyaluronate Sodium Ophth Inj 0.5 ML Syringe IOCULAR ONE; +Dexamethasone 4 MG/ML SDV IV ONE; +Dexamethasone/Neomycin/Polymyxin B Ophth Oint 3.5 GM Tube EYELF ONE; -Dextrose 5%-0.45% NaCl 1,000 ML IV SCH; +Diclofenac Sodium 0.1% Ophth Soln 5 ML Bottle EYELF ONE; +Lidocaine 1% 30 ML SDV ONE; +Midazolam 1 MG/ML 2 ML SDV IV ONE; -Midazolam 1 MG/ML 2 ML SDV ONE; +Moxifloxacin 0.5% Ophth Soln 3 ML Bottle EYELF ONE; +Ondansetron 4 MG/2 ML SDV IVPUSH PRN; +Phenylephrine 10% Ophth Soln 5 ML Bot EYELF ONE; +Povidone-Iodine 5% Sterile Ophth Soln 30 ML Bottle EYELF ONE; +Proparacaine 0.5% Ophth Soln 15 ML Bottle EYELF ONE; -Sodium Chloride 0.9% 10 ML Syringe FLUSH SCH; +Sodium Chloride 0.9% 10 ML Syringe IV ONE; +Tetracaine HCl/PF 0.5% 4 ML Bottle EYELF ONE; +Timolol Maleate 0.5% Ophth Soln 5 ML Bottle EYELF ONE; +Tropicamide 1% Ophth Soln 15 ML Bottle EYELF ONE; +Vancomycin 500 MG SDV EYELF ONE; -fentaNYL 100 MCG/2 ML SDV ONE
[2021-08-29 12:07] VITALS: BP 174/82; PULSE 68
== END | disposition home or self-care (01) ==
LOC: DL.SDS 10:14
PROVIDERS: ATTEND Ophthalmology
DX: H25.812 Combined forms of age-related cataract, left eye (principal); F41.8 Other specified anxiety disorders; E78.5 Hyperlipidemia, unspecified; K21.9 Gastro-esophageal reflux disease without esophagitis; I12.9 Hypertensive chronic kidney disease with stage 1 through stage 4 chronic kidney disease, or unspecified chronic kidney disease; N18.32 Chronic kidney disease, stage 3b; R06.9 Unspecified abnormalities of breathing; F32.A Depression, unspecified; E55.9 Vitamin D deficiency, unspecified; H61.23 Impacted cerumen, bilateral; Z88.0 Allergy status to penicillin; Z79.899 Other long term (current) drug therapy; Z88.8 Allergy status to other drugs, medicaments and biological substances
CPT/HCPCS: 00142; A9270-GY; J1100; J2250; J3370; J3490; V2632

== ENCOUNTER 2021-10-17 10:00 | Day surgery (SDC) | payer MEDICARE, BC ==
[~2021-10-17 10:00] MED LIST changes: -Acetaminophen 325 MG Tab PO PRN; -Acetaminophen/Codeine 300-30 MG Tab PO PRN; -Apraclonidine 0.5% Ophth Soln 5 ML Bot EYELF ONE; -Balanced Salt Solution Ophth Irrig 500 ML Bottle IOCULAR ONE; -Cataract Ophth Solution EYELF ONE; +Cataract Ophth Solution EYERT ONE; -Chondroitin Sulfate/Hyaluronate Sodium Ophth Inj 0.5 ML Syringe IOCULAR ONE; -Dexamethasone 4 MG/ML SDV IV ONE; -Dexamethasone/Neomycin/Polymyxin B Ophth Oint 3.5 GM Tube EYELF ONE; -Diclofenac Sodium 0.1% Ophth Soln 5 ML Bottle EYELF ONE; -Lidocaine 1% 30 ML SDV ONE; -Midazolam 1 MG/ML 2 ML SDV IV ONE; -Moxifloxacin 0.5% Ophth Soln 3 ML Bottle EYELF ONE; -Ondansetron 4 MG/2 ML SDV IVPUSH PRN; -Phenylephrine 10% Ophth Soln 5 ML Bot EYELF ONE; -Povidone-Iodine 5% Sterile Ophth Soln 30 ML Bottle EYELF ONE; -Proparacaine 0.5% Ophth Soln 15 ML Bottle EYELF ONE; -Sodium Chloride 0.9% 10 ML Syringe FLUSH PRN; -Sodium Chloride 0.9% 10 ML Syringe IV ONE; -Tetracaine HCl/PF 0.5% 4 ML Bottle EYELF ONE; -Timolol Maleate 0.5% Ophth Soln 5 ML Bottle EYELF ONE; -Tropicamide 1% Ophth Soln 15 ML Bottle EYELF ONE; -Vancomycin 500 MG SDV EYELF ONE
[2021-10-17] MEDS ORDERED: Midazolam 1 MG/ML 2 ML SDV IV ONE (10:01)
[2021-10-17] MEDS ORDERED: Sodium Chloride 0.9% 10 ML Syringe IV ONE (10:01)
[2021-10-17] MEDS ORDERED: Dexamethasone 4 MG/ML SDV IV ONE (10:01)
[2021-10-17] MEDS ORDERED: Acetaminophen 325 MG Tab PO PRN (10:15)
[2021-10-17] MEDS ORDERED: Timolol Maleate 0.5% Ophth Soln 5 ML Bottle EYERT ONE (10:15)
[2021-10-17] MEDS ORDERED: Tropicamide 1% Ophth Soln 15 ML Bottle EYERT ONE (10:15)
[2021-10-17] MEDS ORDERED: Sodium Chloride 0.9% 10 ML Syringe FLUSH PRN (10:15)
[2021-10-17] MEDS ORDERED: Tobramycin 0.3% Ophth Drops 5 ML Bottle EYELF ONE (10:15)
[2021-10-17] MEDS ORDERED: Ondansetron 4 MG/2 ML SDV IVPUSH PRN (10:15)
[2021-10-17] MEDS ORDERED: Proparacaine 0.5% Ophth Soln 15 ML Bottle EYERT ONE (10:15)
[2021-10-17] MEDS ORDERED: Moxifloxacin 0.5% Ophth Soln 3 ML Bottle EYERT ONE (10:15)
[2021-10-17] MEDS ORDERED: Povidone-Iodine 5% Sterile Ophth Soln 30 ML Bottle EYERT ONE ×2 (10:15→11:05)
[2021-10-17] MEDS ORDERED: Acetaminophen/Codeine 300-30 MG Tab PO PRN (10:15)
[2021-10-17] MEDS ORDERED: Phenylephrine 10% Ophth Soln 5 ML Bot EYERT PRN (10:15)
[2021-10-17] MEDS ORDERED: Tetracaine HCl/PF 0.5% 4 ML Bottle EYERT ONE (11:05)
[2021-10-17] MEDS ORDERED: Diclofenac Sodium 0.1% Ophth Soln 5 ML Bottle EYERT ONE (11:06)
[2021-10-17] MEDS ORDERED: Apraclonidine 0.5% Ophth Soln 5 ML Bot EYERT ONE (11:06)
[2021-10-17] MEDS ORDERED: Vancomycin 500 MG SDV EYERT ONE (11:07)
[2021-10-17] MEDS ORDERED: Balanced Salt Solution Ophth Irrig 500 ML Bottle IOCULAR ONE (11:07)
[2021-10-17] MEDS ORDERED: Dexamethasone/Neomycin/Polymyxin B Ophth Oint 3.5 GM Tube EYERT ONE (11:07)
[2021-10-17] MEDS ORDERED: Lidocaine 1% 5 ML VIAL ONE (11:07)
[2021-10-17] MEDS ORDERED: Chondroitin Sulfate/Hyaluronate Sodium Ophth Inj 0.75 ML Syringe EYERT ONE (11:07)
[2021-10-17 12:47] VITALS: BP 169/87; PULSE 70
== END 2021-10-17 12:15 | disposition home or self-care (01) ==
LOC: DL.SDS 10:00
PROVIDERS: ATTEND Ophthalmology
DX: H25.811 Combined forms of age-related cataract, right eye (principal); E78.5 Hyperlipidemia, unspecified; F41.8 Other specified anxiety disorders; K21.9 Gastro-esophageal reflux disease without esophagitis; I12.9 Hypertensive chronic kidney disease with stage 1 through stage 4 chronic kidney disease, or unspecified chronic kidney disease; N18.32 Chronic kidney disease, stage 3b; D63.1 Anemia in chronic kidney disease; M06.9 Rheumatoid arthritis, unspecified; E55.9 Vitamin D deficiency, unspecified; M81.0 Age-related osteoporosis without current pathological fracture; H61.23 Impacted cerumen, bilateral; Z88.0 Allergy status to penicillin; Z79.899 Other long term (current) drug therapy; Z88.8 Allergy status to other drugs, medicaments and biological substances
CPT/HCPCS: 00142; 66982; A9270; J1100; J2250; J3370; J3490; V2632

== ENCOUNTER 2023-09-25 15:40 | Observation (INO) | payer MEDICARE, BC ==
[2023-09-25 16:26] LABS: HEMATOCRIT 33.6 % (37.0-47.0); HEMOGLOBIN 10.9 g/dL (12.0-16.0); MEAN CORPUSCULAR HEMOGLOBIN 33.7 pg (27.0-34.0); MEAN CORPUSCULAR HGB CONC 32.4 g/dL (33.0-35.0); PLATELET COUNT,PLT 323 10^3/uL (150-450); RED BLOOD CELL COUNT 3.23 10^6/uL (4.2-5.4); WHITE BLOOD CELL COUNT,WBC 17.9 10^3/uL (5.0-10.0)
[2023-09-25] MEDS: Ondansetron 4 MG in Sodium Chloride 0.9% 50 ML IV ONE (16:33)
[2023-09-25] MEDS: Sodium Chloride 0.9% 10 ML Syringe FLUSH PRN (16:35)
[2023-09-25 16:37] LABS: BASOPHILS PERCENT AUTO 0.2 % (0.0-1.0); EOSINOPHILS PERCENT AUTO 0.3 % (1.0-3.0); LYMPHOCYTES PERCENT AUTO 5.1 % (20.5-50.1); MONOCYTES PERCENT AUTO 6.3 % (2-8); NEUTROPHILS PERCENT AUTO 88.1 % (42.2-75.2)
[2023-09-25 16:47] LABS: A/G RATIO 1.1; ALBUMIN 3.5 g/dL (3.4-5.0); ANION GAP 17.8 mEq/L (7-13); BILIRUBIN TOTAL 0.3 mg/dL (0.2-1.0); BUN/CREATININE RATIO 21.1 (No establ ref range); C-REACTIVE PROTEIN 0.52 ng/dL (<=0.50); CREATININE 2.09 mg/dL (0.55-1.02); EST CRCL DRUG DOSING (CG) 17.3 mL/min; POTASSIUM,K 5.8 mmol/L (3.5-5.1); PROTEIN TOTAL,TP 6.7 g/dL (6.4-8.2)
[2023-09-25 17:01] LABS: EOSINOPHILS PERCENT MAN 1 % (1-3); LYMPHOCYTES PERCENT MAN 6 % (20-50); MONOCYTES PERCENT MAN 2 % (2-8); SEG NEUTROPHILS PERCENT MAN 91 % (42-75)
[2023-09-25] MEDS: metroNIDAZOLE/Normal Saline 500 MG in Premix Bag 1 BAG IV ONE (17:20)
[2023-09-25] MEDS: cefTRIAXone 1 GM Vial IVPUSH ONE (17:25)
[2023-09-25] MEDS: Sodium Polystyrene Sulfonate 15 GM/60 ML Susp 60 ML Bot PO ONE (17:32)
[2023-09-25] MEDS ORDERED: Acetaminophen 325 MG Tab PO PRN (19:29)
[2023-09-25] MEDS ORDERED: Ondansetron 4 MG Tab.DIS PO PRN (19:29)
[2023-09-25] MEDS: Cephalexin 500 MG Cap PO SCH (21:39)
[2023-09-25] MEDS: Acetaminophen 500 MG Tab PO SCH (21:39)
[2023-09-26] MEDS: Pantoprazole 40 MG Tab.CR PO SCH (05:01)
[2023-09-26] MEDS: FLUoxetine 10 MG Cap PO SCH (08:05)
[2023-09-26] MEDS: Ferrous Sulfate 325 MG Tab PO SCH (08:06)
[2023-09-26] MEDS: Metoprolol Succinate 25 MG Tab.ER PO SCH (08:07)
[2023-09-26] MEDS: Hydroxychloroquine 200 MG Tab PO SCH (08:08)
[2023-09-26] MEDS: Losartan 25 MG Tab PO SCH (08:11)
[2023-09-26] MEDS: amLODIPine 5 MG Tab PO SCH (08:13)
[2023-09-26] MEDS: predniSONE 5 MG Tab PO SCH (08:14)
[2023-09-26 11:13] VITALS: BP 87/53; PULSE 66
[2023-09-26] MEDS ORDERED: Enoxaparin 30 MG/0.3 ML Syringe SUBCUT SCH (12:00)
== END 2023-09-26 11:27 | disposition home or self-care (01) ==
LOC: DL.ED 15:40 → DL.MS 19:23 → DL.ED 19:30
PROVIDERS: ADMIT Internal Medicine; ATTEND Internal Medicine
DX: K52.9 Noninfective gastroenteritis and colitis, unspecified (principal); I12.9 Hypertensive chronic kidney disease with stage 1 through stage 4 chronic kidney disease, or unspecified chronic kidney disease; N18.31 Chronic kidney disease, stage 3a; M06.9 Rheumatoid arthritis, unspecified; K21.9 Gastro-esophageal reflux disease without esophagitis; Z79.899 Other long term (current) drug therapy; Z88.0 Allergy status to penicillin; Z88.8 Allergy status to other drugs, medicaments and biological substances; Z91.048 Other nonmedicinal substance allergy status
CPT/HCPCS: 36415; 74018; 74176; 80053; 85025; 86140; 93005; 93010; 97161; 97165; 99222; 99239; 99284; A9270; G0378; J0696; J1836; J2405; J3490; J7512

== ENCOUNTER 2024-05-18 16:20 | Emergency (ER) | payer MEDICARE, BC ==
[2024-05-18 16:47] VITALS: BP 125/81; PULSE 74
[2024-05-18 18:12] LABS: BASOPHILS PERCENT AUTO 0.1 % (0.0-1.0); EOSINOPHILS PERCENT AUTO 0.3 % (1.0-3.0); HEMATOCRIT 32.6 % (37.0-47.0); HEMOGLOBIN 9.8 g/dL (12.0-16.0); LYMPHOCYTES PERCENT AUTO 7.8 % (20.5-50.1); MEAN CORPUSCULAR HEMOGLOBIN 31.5 pg (27.0-34.0); MEAN CORPUSCULAR HGB CONC 30.1 g/dL (33.0-35.0); MEAN CORPUSCULAR VOLUME 104.8 fL (80-100); MONOCYTES PERCENT AUTO 6.8 % (2-8); PLATELET COUNT,PLT 272 10^3/uL (150-450); RED BLOOD CELL COUNT 3.11 10^6/uL (4.2-5.4)
[2024-05-18 18:26] LABS: BILIRUBIN,URINE NEGATIVE (NEGATIVE); COLOR,URINE YELLOW (YELLOW); GLUCOSE,URINE NEGATIVE (NEGATIVE); KETONES,URINE NEGATIVE (NEGATIVE); LEUKOCYTE ESTERASE,URINE TRACE (NEGATIVE); NITRITE,URINE NEGATIVE (NEGATIVE); OCCULT BLOOD,URINE LARGE (NEGATIVE); PH,URINE 5.5 (5.0-9.0); PROTEIN,URINE TRACE (NEGATIVE); UROBILINOGEN,URINE 0.2 mg/dL (0.2-1.0)
[2024-05-18 18:33] LABS: APPEARANCE,URINE SLIGHTLY CLOUDY (CLEAR); BACTERIA,URINE MANY /HPF (0-FEW/HPF); EPITHELIAL CELLS,URINE FEW /HPF (NOT SEEN); WBC,URINE 20-30 /HPF (0-5/HPF)
[2024-05-18] MEDS: Take Home: Cyclobenzaprine 10 MG Tab, 4 Tab Pack PO ONE (18:53)
== END 2024-05-18 19:03 | disposition home or self-care (01) ==
LOC: DL.ED 16:20
DX: M25.551 Pain in right hip (principal); M62.838 Other muscle spasm; I10 Essential (primary) hypertension; K21.9 Gastro-esophageal reflux disease without esophagitis; Z86.16 Personal history of COVID-19; Z88.0 Allergy status to penicillin; Z88.8 Allergy status to other drugs, medicaments and biological substances; Z91.048 Other nonmedicinal substance allergy status; Z79.899 Other long term (current) drug therapy
CPT/HCPCS: 36415; 73700; 81001; 85025; 87086; 99284; A9270